=== PATIENT | female | born 1950 | race African-American/Black ===

== ENCOUNTER 2018-11-17 07:42 | Inpatient (IN) | payer OTHER ==
--- NOTE | 2018-11-17 08:16 | PDOC ---
History of Present Illness - General Chief Complaint: Seizure Stated Complaint: SEIZURE Time Seen by Provider: 11/17/18 07:44 - History of Present Illness Initial Comments: 68 year old female with PMH of right sided breast cancer s/p resection with lymphnodectomy on the right presenting with multiple new onset seizures. Family noticed that the patient was shaking and unresponsive for a few seconds approximately 7:30 AM after arriving at the daughter's house via bus. EMS witnessed two more seizures on arrival and were about to administer versed each time but the patient stopped seizing. It is unclear if she returned to her baseline in between these episodes as she was loudly crying in between asking for help. EMS also noted . She did not admit to any recent sick symptoms and has been taking her anti-hypertensives and anxiolytics as prescribed. She denies fevers, chills, nausea, vomiting, diarrhea, or other symptoms. 11/17/18 08:18 Past History - Past Medical History Allergies/Adverse Reactions: Allergies Allergy/AdvReac Type Severity Reaction Status Date / Time No Known Drug Allergies Allergy Verified 11/17/18 07:49 Home Medications: Ambulatory Orders Alprazolam [Xanax] 0.5 mg PO Q6H PRN 04/15/14 Amlodipine Besylate [Norvasc -] 2.5 mg PO DAILY 04/15/14 Aspirin [ASA -] 81 mg PO DAILY 04/15/14 Losartan/Hydrochlorothiazide [Losartan-Hctz 100-25 mg Tab] 1 each PO DAILY 04/15 Anastrozole [Arimidex -] 1 mg PO DAILY 11/17/18 Empagliflozin [Jardiance] 10 mg PO DAILY 11/17/18 Metoprolol Tartrate 25 mg PO DAILY 11/17/18 Rosuvastatin Calcium 20 mg PO DAILY 11/17/18 Anemia: Yes Asthma: No Cancer: Yes (RIGHT BREAST) Cardiac Disorders: Yes (MUMUR, STENT) CVA: No COPD: No CHF: No Dementia: No Diabetes: No GI Disorders: No (BORDERLINE) Disorders: No HTN: Yes Hypercholesterolemia: Yes Liver Disease: No Seizures: No Thyroid Disease: No - Surgical History Abdominal Surgery: No Appendectomy: No Cardiac Surgery: Yes (STENT TIMES ONE) Cholecystectomy: No Lung Surgery: No Neurologic Surgery: No Orthopedic Surgery: No - Suicide/Smoking/Psychosocial Hx Smoking History: Never smoked Have you smoked in the past 12 months: No If you are a former smoker, when did you quit?: 02/16/15 Information on smoking cessation initiated: No Hx Alcohol Use: No Drug/Substance Use Hx: No Substance Use Type: Alcohol Hx Substance Use Treatment: No Review of Systems - Review of Systems Constitutional: No: Chills, Diaphoresis, Fever HEENTM: No: Eye Pain, Blurred Vision, Tearing Respiratory: No: Cough, Orthopnea, Shortness of Breath Cardiac (ROS): No: Chest Pain, Edema, Irregular Heart Rate ABD/GI: No: Diarrhea, Nausea, Vomiting : No: Burning, Dysuria, Discharge Musculoskeletal: No: Muscle Weakness Integumentary: No: Bruising, Erythema, Flushing Neurological: No: Headache, Numbness, Paresthesia Psychiatric: No: Anxiety, Depression Hematologic/Lymphatic: Yes: Lymph Node Abnormalities (right sided lymnodectomy) . No: Anemia, Blood Clots, Easy Bleeding *Physical Exam - Vital Signs Last Vital Signs Temp Pulse Resp BP Pulse Ox 69 18 196/110 H 97 11/17/18 07:44 11/17/18 07:44 11/17/18 07:44 11/17/18 07:44 - Physical Exam General Appearance: Yes: Nourished, Appropriately Dressed. No: Apparent Distress HEENT: positive: EOMI, RACQUEL, Normal ENT Inspection, Normal Voice Neck: positive: Trachea midline, Normal Thyroid, Supple. negative: Tender, Rigid Respiratory/Chest: positive: Lungs Clear, Normal Breath Sounds. negative: Chest Tender, Respiratory Distress, Accessory Muscle Use Cardiovascular: positive: Regular Rhythm, Regular Rate Gastrointestinal/Abdominal: positive: Normal Bowel Sounds, Flat, Soft. negative : Tender Musculoskeletal: positive: Normal Inspection. negative: Decreased Range of Motion Extremity: positive: Normal Capillary Refill, Normal Inspection, Normal Range of Motion. 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 - Medical Decision Making 68 year old female with PMH of breast cancer, HTN, and anxiety presenting with new onset seizure x4 since 7:30 AM in the setting of HTN 200/100s in the field. primary concern was for hemorrhagic stroke vs. hypertensive emergency and subsequent seizure. Blood pressures began to normalize to 140s systolic in our department without intervention. Patient admits htat she took an extra dose of her anti-htn medication at home. Her FS in the field was 190s and there was no obvious sign of infection, She was afebrile here. EKG demonstrated rate 61, RI interval 224, QRS 86, QTc 408, normal axis with ST flattening in V2 without ST wave elevations. Overall concerning fro first degree AV block. 11/17/18 08:[address] negative and labs WNL. Spoke with Dr. Fuentes and he recommended MRI brain with [facility]. Spoke to Dr. Vail as well and will admit to stroke unit. 11/17/18 09:45 *DC/Admit/Observation/Transfer Diagnosis at time of Disposition: Seizure, Hypertensive emergency - Discharge Dispostion Condition at time of disposition: Stable Decision to Admit order: Yes - Referrals - Patient Instructions - Post Discharge Activity
[2018-11-17] MEDS ORDERED: levETIRAcetam 500 MG/5 ML INJECTION VIAL IVPB ONE ×2 (08:30→08:38)
[2018-11-17] MEDS ORDERED: LORazepam 1 MG TABLET PO ONE (08:31)
--- NOTE | 2018-11-17 08:31 | PDOC ---
Attending Attestation - Resident Resident Name: Oliverio Keller - ED Attending Attestation I have performed the following: I have examined & evaluated the patient, The case was reviewed & discussed with the resident, I agree w/resident's findings & plan, Exceptions are as noted - HPI HPI: 11/17/18 08:25 68yo female with hx of htn on 3 bp meds, follows with dr. valiente and hx of breast ca in the past with new onset seizures today. Pt arrives via ambulance with a seizure that lasted about 10 seconds upon arrival. 4th seizure occurred in the ambulance - both resolved spontaneously without meds. Per medics - BP was >200 systolic upon their arrival. Pt with glucose 190 in the field. Pt hypertensive upon arrival. Pt tearful upon arrival. Per daughter, pt arrived on the bus to her house around 7:15 and then had her first seizure around 7:30. Concern pt never returned to baseline. pt denies alcohol use, states she took her bp meds this am and an extra "agitation" med that starts with an F. Daughter sent home to obtain the meds. Pt denies cárdenas. No blurred vision. No cárdenas. No cp/sob. No focal neuro findins. Moving all extremities. Sensation intact. Denies dysuria. No n/v/d. No cp/sob. No cough. - Physicial Exam PE: 11/17/18 08:29 Gen: after seizure and return from CT- aaox3, tearful heent: PERRL, EOMI, MMM Neck: supple heart: +s1s2 reg lungs: cta b/l abd: soft, nt/nd +bs ext: no c/c/e neuro: cn ii-xii grossly intact, 5/5 UE and LE strength, sensation intact, no focal deficits skin: no rashes - Critical Care Time Total Critical Care Time: 45 Critical Care Statement: The care of this patient involved high complexity decision making to prevent further life threatening deterioration of the patient 's condition and/or to evaluate & treat vital organ system(s) failure or risk of failure. - Medical Decision Making 11/17/18 08:31 a/p: 68yo female with new onset seizures today and htn -concern for brain bleed vs cva vs drug induced vs hypertensive emergency -pt took all her BP meds this am -pt also with a hx of breast ca s/p lymph node dissection on the R -pt glu 190 in the field -elevated bp when this started and had 4 seizures this am -currently tearful, anxious, agitated -states she took her "agitation meds" this am and took an extra dose - sent daughter to obtain meds -sent for stat head ct, stroke protocol, labs, ekg, cxr -tele monitoring -on asa per prior notes -will send tox panel -pt will need admission -will discuss with neuro 11/17/18 08:[address] neg labs pending resident discussed the case with Dr. Ma from neuro 11/17/18 08:[address] ma order brain mri with [facility] to eval for poss mass 11/17/18 08:58 cxr clear 11/17/18 09:43 labs reviewed case discussed with Dr. Vail who accepts pt to service Heart Score/ECG Review - ECG Intrepretation Comment:: 11/17/18 08:56 sinus at 61 with 1st degree av block, nl axis, baseline artifact, no acute st/t wave findings, poor r wave progression
[2018-11-17] MEDS ORDERED: LORazepam 0.5 MG TABLET ONE (08:38)
[2018-11-17 08:41] LABS: EOS % 2.5 % (0-4.5); HEMATOCRIT 41.2 % (32.4-45.2); HEMOGLOBIN 13.7 GM/dL (10.7-15.3); LYMPH % 27.8 % (8-40); MCHC 33.2 g/dl (32.0-36.0); MEAN CELL VOLUME 84.2 fl (80-96); MEAN PLT VOLUME 8.2 fl (7.5-11.1); MONO % 10.1 % (3.8-10.2); NEUT % 58.6 % (42.8-82.8); PLATELET COUNT 262 K/MM3 (134-434); RBC 4.89 M/mm3 (3.60-5.2); RDW 14.9 % (11.6-15.6); WHITE BLOOD COUNT 4.6 K/mm3 (4.0-10.0)
[2018-11-17 08:56] LABS: INR 0.96 (0.83-1.09); PROTHROMBIN TIME (PATIENT) 11.3 SEC (9.7-13.0)
[2018-11-17 09:11] LABS: ALBUMIN 4.2 g/dl (3.4-5.0); ALK PHOS 98 U/L (45-117); ANION GAP 7 MMOL/L (8-16); BILIRUBIN,TOTAL 0.3 mg/dL (0.2-1); BLOOD UREA NITROGEN 16.4 mg/dL (7-18); CALCIUM 9.8 mg/dL (8.5-10.1); CHLORIDE 105 mmol/L (98-107); CO2 27 mmol/L (21-32); CREATININE 1.1 mg/dL (0.55-1.3); GLUCOSE,RANDOM 178 mg/dL (74-106); POTASSIUM 3.9 mmol/L (3.5-5.1); SGOT/AST 18 U/L (15-37); SGPT/ALT 38 U/L (13-61); SODIUM 139 mmol/L (136-145); TOT PROT 8.3 g/dl (6.4-8.2)
--- NOTE | 2018-11-17 09:39 | EKG ---
Test Reason : Blood Pressure : / mmHG Vent. Rate : 061 BPM Atrial Rate : 061 BPM P-R Int : 224 ms QRS Dur : 086 ms QT Int : 406 ms P-R-T Axes : 041 039 058 degrees QTc Int : 408 ms SINUS RHYTHM WITH 1ST DEGREE A-V BLOCK POSSIBLE ANTERIOR INFARCT , AGE UNDETERMINED ABNORMAL ECG NO PREVIOUS ECGS AVAILABLE Confirmed by MARILU CHI MD ([id number]) on 11/17/2018 9:38:49 AM Referred By: Confirmed By:MARILU CHI MD
--- NOTE | 2018-11-17 10:46 | CON.NEURO ---
Consult - History of Present Illness History of Present Illness: 68yo female with hx of htn on 3 bp meds, follows with dr. valiente and hx of breast ca in the past with new onset seizures today. Pt arrives via ambulance with a seizure that lasted about 10 seconds upon arrival. 4th seizure occurred in the ambulance - both resolved spontaneously without meds. Per medics - BP was >200 systolic upon their arrival. Pt with glucose 190 in the field. Per daughter, pt arrived on the bus to her house around 7:15 and then had her first seizure around 7:30. Concern pt never returned to baseline. pt denies alcohol use, states she took her bp meds this am and an extra "agitation" med that starts with an F. Daughter sent home to obtain the meds. NO HX of seizures. Pt denies fox. blurred vision. No FOX. Keppra loaded in ER. HD cT (-), no fever , WBC NL - Alcohol/Substance Use Hx Alcohol Use: No - Smoking History Smoking history: Never smoked Have you smoked in the past 12 months: No If you are a former smoker, when did you quit?: 02/16/15 Home Medications - Allergies Allergies/Adverse Reactions: Allergies Allergy/AdvReac Type Severity Reaction Status Date / Time No Known Drug Allergies Allergy Verified 11/17/18 07:49 - Home Medications Home Medications: Ambulatory Orders Alprazolam [Xanax] 0.5 mg PO Q6H PRN 04/15/14 Amlodipine Besylate [Norvasc -] 2.5 mg PO DAILY 04/15/14 Aspirin [ASA -] 81 mg PO DAILY 04/15/14 Losartan/Hydrochlorothiazide [Losartan-Hctz 100-25 mg Tab] 1 each PO DAILY 04/15 Anastrozole [Arimidex -] 1 mg PO DAILY 11/17/18 Empagliflozin [Jardiance] 10 mg PO DAILY 11/17/18 Metoprolol Tartrate 25 mg PO DAILY 11/17/18 Rosuvastatin Calcium 20 mg PO DAILY 11/17/18 Physical Exam-Neuro Vital Signs: Vital Signs Temperature 99.2 F 11/17/18 07:44 Pulse Rate 57 L 11/17/18 09:29 Respiratory Rate 18 11/17/18 09:29 Blood Pressure 173/97 H 11/17/18 09:29 O2 Sat by Pulse Oximetry (%) 100 11/17/18 09:29 Labs: CBC, BMP 11/17/18 08:05 11/17/18 08:05 INR, PTT INR 0.96 (0.83-1.09) 11/17/18 08:05 - Neuro Exam Level Of Consciousness: Yes: Alert, Oriented to Person (EOMi, no facial, motor 5 /5, reflexes symmetric) Imaging - Results Cat Scan: Report Reviewed, Image Reviewed Problem List - Problems (1) Hypertensive emergency Code(s): I16.1 - HYPERTENSIVE EMERGENCY (2) Seizure Code(s): R56.9 - UNSPECIFIED CONVULSIONS Assessment/Plan 68yo female with hx of htn on 3 bp meds, follows with dr. valiente and hx of breast ca in the past with new onset seizures today. Pt arrives via ambulance with a seizure that lasted about 10 seconds upon arrival. 4th seizure occurred in the ambulance - both resolved spontaneously without meds. Per medics - BP was >200 systolic upon their arrival. Pt with glucose 190 in the field. Per daughter, pt arrived on the bus to her house around 7:15 and then had her first seizure around 7:30. Concern pt never returned to baseline. pt denies alcohol use, states she took her bp meds this am and an extra "agitation" med that starts with an F. Daughter sent home to obtain the meds. Pt denies fox. blurred vision. No fox. HD cT (-), no fever , WBC NL AP : Hypertensive urgency, with seizure, possible PRES, back to baseline no evidence of meningitis , stroke etc await MRI BRAIN continue KEppra 500BID for now, and will consider taper in 2 weeks assuming she has no new neurological issues Dr. Fuentes
[2018-11-17 14:55] LABS: COCAINE, UR NEGATIVE ng/ml (CUTOFF=300); METHADONE, UR NEGATIVE ng/ml (CUTOFF=300); OPIATES, URI NEGATIVE ng/ml (CUTOFF=300); PHENCYCLIDINE,URINE NEGATIVE ng/ml (CUTOFF=25); URINE AMPHETAMINES NEGATIVE ng/ml (CUTOFF=500); URINE BARBITURATES NEGATIVE ng/ml (CUTOFF=200); URINE BENZODIAZEPINES NEGATIVE ng/ml (CUTOFF=200)
[2018-11-17 15:52] LABS: URINE APPEARANCE CLEAR; URINE BILIRUBIN NEGATIVE (NEGATIVE); URINE COLOR YELLOW; URINE GLUCOSE (UA) 3+ (NEGATIVE); URINE KETONE NEGATIVE (NEGATIVE); URINE LEUK ESTERASE NEGATIVE (NEGATIVE); URINE NITRITE NEGATIVE (NEGATIVE); URINE PROTEIN NEGATIVE (NEGATIVE); URINE UROBILINOGEN 0.2 mg/dL (0.2-1.0)
--- NOTE | 2018-11-17 19:51 | HP ---
Admitting History and Physical - Admission History of Present Illness: Pt is a 68 year old female with PMH significant for breast cancer(s/p rt mastectomy/lymph node resection), HTN, HLD, CAD(s/p stent placement), diabetes and anxiety/depression. Pt presednted to ER w/ multiple new onset seizures. Family noticed that the patient was shaking and unresponsive for a few seconds approximately 7:30 AM after arriving at the daughter's house via bus. EMS witnessed two more seizures on arrival and were about to administer versed each time but the patient stopped seizing. It is unclear if she returned to her baseline in between these episodes as she was loudly crying in between asking for help. EMS also noted . EMS found pt's BP to be systolic BP of > 200 and blood glucose of 190. In the ER pt again had another seizure. Pt had ct scan head wc was normal. Pt states that she took all her meds this am. - Past Medical History Cardiovascular: Yes: CAD, HTN, Hyperlipdemia Psych: Yes: Anxiety, Depression - Smoking History Smoking history: Former smoker Have you smoked in the past 12 months: No If you are a former smoker, when did you quit?: 02/16/14 - Alcohol/Substance Use Hx Alcohol Use: No Home Medications - Allergies Allergies/Adverse Reactions: Allergies Allergy/AdvReac Type Severity Reaction Status Date / Time No Known Drug Allergies Allergy Verified 11/17/18 07:49 - Home Medications Home Medications: Ambulatory Orders Alprazolam [Xanax] 0.5 mg PO Q6H PRN 04/15/14 Amlodipine Besylate [Norvasc -] 2.5 mg PO DAILY 04/15/14 Aspirin [ASA -] 81 mg PO DAILY 04/15/14 Losartan/Hydrochlorothiazide [Losartan-Hctz 100-25 mg Tab] 1 each PO DAILY 04/15 Anastrozole [Arimidex -] 1 mg PO DAILY 11/17/18 Empagliflozin [Jardiance] 10 mg PO DAILY 11/17/18 Fluoxetine HCl 20 mg PO DAILY 11/17/18 Metoprolol Tartrate 25 mg PO DAILY 11/17/18 Rosuvastatin Calcium 20 mg PO DAILY 11/17/18 Family Disease History - Family Disease History Family History: Unremarkable Review of Systems - Review of Systems Constitutional: reports: No Symptoms Eyes: reports: No Symptoms HENT: reports: No Symptoms Neck: reports: No Symptoms Cardiovascular: reports: No Symptoms Respiratory: reports: No Symptoms Gastrointestinal: reports: No Symptoms Genitourinary: reports: No Symptoms Physical Examination Vital Signs: Vital Signs Temperature 97.8 F 11/17/18 17:20 Pulse Rate 73 11/17/18 17:20 Respiratory Rate 20 11/17/18 17:20 Blood Pressure 142/80 11/17/18 17:20 O2 Sat by Pulse Oximetry (%) 99 11/17/18 13:08 Constitutional: Yes: Well Nourished Eyes: Yes: WNL HENT: Yes: WNL Neck: Yes: WNL, Supple Cardiovascular: Yes: WNL, Regular Rate and Rhythm Respiratory: Yes: WNL, Regular, CTA Bilaterally Gastrointestinal: Yes: WNL, Normal Bowel Sounds, Soft Musculoskeletal: Yes: WNL Extremities: Yes: WNL Edema: No Neurological: Yes: WNL, Alert, Oriented ...Motor Strength: WNL Labs: CBC, BMP 11/17/18 08:05 11/17/18 08:05 Problem List - Problems (1) Seizure Assessment/Plan: CT scan head was normal Neuro consult noted Cont keppra MRI brain to r/o mets from breast cancer Code(s): R56.9 - UNSPECIFIED CONVULSIONS (2) HTN (hypertension) Assessment/Plan: BP is now stable Cont Hctz/asa/norvasc/cozaar/metoprolol Check echo Code(s): I10 - ESSENTIAL (PRIMARY) HYPERTENSION (3) HLD (hyperlipidemia) Assessment/Plan: Cont crestor Code(s): E78.5 - HYPERLIPIDEMIA, UNSPECIFIED (4) Diabetes Assessment/Plan: Cont sliding scale w/ coverage Check HgA1c Jardiance is nonformulary Will cont to monitor Code(s): E11.9 - TYPE 2 DIABETES MELLITUS WITHOUT COMPLICATIONS (5) Anxiety and depression Assessment/Plan: Cont paxil Code(s): F41.9 - ANXIETY DISORDER, UNSPECIFIED; F32.9 - MAJOR DEPRESSIVE DISORDER, SINGLE EPISODE, UNSPECIFIED (6) Breast cancer Assessment/Plan: Cont arimidex Code(s): C50.919 - MALIGNANT NEOPLASM OF UNSP SITE OF UNSPECIFIED FEMALE BREAST
[2018-11-17] MEDS: INSULIN SLIDING SCALE (NOVOLOG) 1 VIAL SQ SCH (21:57)
[2018-11-17] MEDS ORDERED: ROSUVASTATIN CA 20 MG TABLET (FP) PO SCH (22:00)
[2018-11-17] MEDS ORDERED: levETIRAcetam 500 MG/5 ML INJECTION VIAL IVPB SCH (22:00)
[2018-11-18] MEDS ORDERED: LORazepam 2 MG/ML SDV VIAL ONE ×3 (05:13→16:59)
[2018-11-18] MEDS ORDERED: LORazepam 2 MG/ML SDV VIAL IVPUSH ONE ×4 (05:15→21:14)
--- NOTE | 2018-11-18 05:20 | RAPID ---
Physical Examination Vital Signs: Vital Signs Temperature 97.5 F L 11/18/18 02:07 Pulse Rate 63 11/18/18 02:07 Respiratory Rate 20 11/18/18 02:07 Blood Pressure 123/79 11/18/18 02:07 O2 Sat by Pulse Oximetry (%) 99 11/17/18 21:00 Findings/Remarks: Rapid response was called at 0510. Team arrived and found the patient lying in bed, distressed. As per nurse patient came from the bathroom and started to have generalized seizures that lasted about 10 seconds, resolved spontaneously. 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 Fuentes, increased Keppra dose to 1gm BID, given dose now - Brain MRI stat - LP after MRI Labs: CBC, BMP 11/17/18 08:05 11/17/18 08:05
[2018-11-18] MEDS ORDERED: levETIRAcetam 500 MG/5 ML INJECTION VIAL IVPB SCH ×2 (05:40→05:50)
[2018-11-18] MEDS: levETIRAcetam 500 MG/5 ML INJECTION VIAL IVPB SCH ×3 (05:45→21:16)
[2018-11-18] MEDS ORDERED: levETIRAcetam 500 MG/5 ML INJECTION VIAL IVPB ONE (05:45)
--- NOTE | 2018-11-18 06:09 | CONSULT ---
Consultation: REQUESTING PROVIDER: Dr. Salmeron CONSULT REQUEST: We have been asked to medically evaluate this patient for recurrent seizures. HISTORY OF PRESENT ILLNESS: 68 y/o old female with PMH significant for breast cancer(s/p rt mastectomy/ lymph node resection), HTN, HLD, CAD(s/p stent placement), diabetes, anxiety, depression, who initially presented for new onset seizures which began at home yesterday. Per chart, pt had two new-onset seizures at home yesterday. Pt seized twice to the ED en route, both resolving spontaneously without medication. Upon arrival to ED, pt with BP systolic >200 upon arrival, with BG 190 in the field. Pt was initially admitted for management and was seen by neuro , loaded on Keppra 1000mg IVPB x 1 and started on Keppra 500mg IVPB BID. Pt initially with concern for PRES. Rapid response was called on the floor, as pt continuing to seize despite keppra initiation. Per team, pt had two witnessed seizures, each lasting approx 10 seconds. First sz self-terminated on own. After , pt was moaning, however was responsive to verbal stimuli. Was unable to move her toes. Before 2nd seizure, pt was noted to have R lateral gaze deviation. 2nd seizure terminated with ativan 2mg IVP x1. Upon my examination, pt was lethargic post ativan. Vitals at RR stable - BP 137/70, HR 58bpm. Pt transferred to ICU post rapid response for recurrent seizure stabilization. Head CT 11/17/2018: no CT evidence of mass, hemorrhage, or acute vascular territory infarction. No hyperdense vessel. No acute intracranial hemorrhage, no acute infarction, no acute changes in the brain identified. REVIEW OF SYSTEMS: +lethargy +seizure PHYSICAL EXAMINATION Vital Signs 11/17/18 11/17/18 11/18/18 17:20 21:00 02:07 Temperature 97.8 F 98.1 F 97.5 F L Pulse Rate 73 60 63 Pulse Rate [ Left Radial] Respiratory 20 18 20 Rate Blood Pressure 142/80 119/51 L 123/79 Blood Pressure [Left Arm] O2 Sat by Pulse 99 Oximetry (%) GENERAL: lethargic HEAD: Normal with no signs of trauma. EYES: +sluggish pupils EARS, NOSE, THROAT: Ears normal, nares patent, oropharynx clear without exudates. Moist mucous membranes. NECK: Normal range of motion, supple LUNGS: Breath sounds equal, clear to auscultation bilaterally. No wheezes, and no crackles. No accessory muscle use. HEART: Regular rate and rhythm, normal S1 and S2 without murmur, rub or gallop. ABDOMEN: Soft, obese, nontender, not distended, normoactive bowel sounds LOWER EXTREMITIES: 2+ pt pulses, warm, well-perfused. No calf tenderness. No peripheral edema. NEUROLOGICAL: pt lethargic after ativan. previously was able to follow commands , however was unable to move LE. Laboratory Results 11/17/18 11/17/18 11/17/18 08:05 08:05 08:05 WBC 4.6 Hgb 13.7 Hct 41.2 Plt Count 262 Sodium 139 Potassium 3.9 Chloride 105 Carbon Dioxide 27 BUN 16.4 Creatinine 1.1 Random Glucose 178 H Total Protein 8.3 H Ur Specific [place] Urine Glucose (UA) Salicylates < 1.7 L 11/17/18 14:20 Total Protein Ur Specific [place] 1.039 H Urine Glucose (UA) 3+ H Salicylates ASSESSMENT/PLAN: 68 y/o old female with PMH significant for breast cancer(s/p rt mastectomy/ lymph node resection), HTN, HLD, CAD(s/p stent placement), diabetes, anxiety, depression, who initially presented for new onset seizures which began at home yesterday. Pt transferred to ICU post rapid response for recurrent seizure stabilization. NEURO #New onset seizures initial concern HTN urgency, possible PRES -BP currently controlled : ~130/90. no longer with urgency -initial head CT: WNL -s/p keppra 1000mg IVPB x 1. -d/w Dr. Fuentes as with continued sz activity, will change keppra from 500mg to 1000mg IVPB BID -if sz with new keppra dose, will need to load dilantin -may need LP -requested head CT w/w/o contrast. renal fnc WNL. will need consent from family -f/u brain MRI r/o mets from breast CA -f/u ECHO -sz precautions HEME/ONC #Hx breast ca (s/p R mastectomy/ LN resection) -c/w arimidex CARDIO #HTN -c/w hctz, asa, norvasc, cozaar, metoprolol when less lethargic -BP currently stable. can start IV control if needed as unable to tolerate PO #HLD -c/w crestor ENDOCRINE -c/w ISS, BGM ACHS -f/u a1c PSYCH #Anxiety, depression -c/w paxil #F/E/N currently not on IVF continue to follow lytes NPO; lethargic #PPX DVT: hep 5k TID Dispo: We will continue to follow the patient. Thank you for this consultative opportunity. Visit type - Emergency Visit Emergency Visit: No - New Patient This patient is new to me today: Yes Date on this admission: 11/18/18 - Critical Care Critical Care patient: Yes Total Critical Care Time (in minutes): 46 Critical Care Statement: The care of this patient involved high complexity decision making to prevent further life threatening deterioration of the patient 's condition and/or to evaluate & treat vital organ system(s) failure or risk of failure.
[2018-11-18] MEDS: INSULIN SLIDING SCALE (NOVOLOG) 1 VIAL SQ SCH ×4 (06:11→22:32)
[2018-11-18 06:20] LABS: BASO % 0.9 % (0-2.0); EOS % 3.1 % (0-4.5); HEMATOCRIT 36.8 % (32.4-45.2); HEMOGLOBIN 12.1 GM/dL (10.7-15.3); LYMPH % 42.9 % (8-40); MCH 27.9 pg (25.7-33.7); MCHC 32.9 g/dl (32.0-36.0); MEAN CELL VOLUME 84.8 fl (80-96); MONO % 11.4 % (3.8-10.2); NEUT % 41.7 % (42.8-82.8); PLATELET COUNT 223 K/MM3 (134-434); RBC 4.34 M/mm3 (3.60-5.2); RDW 15.2 % (11.6-15.6); WHITE BLOOD COUNT 4.2 K/mm3 (4.0-10.0)
[2018-11-18 06:34] LABS: ALBUMIN 3.4 g/dl (3.4-5.0); BILIRUBIN,TOTAL 0.3 mg/dL (0.2-1); BLOOD UREA NITROGEN 21.6 mg/dL (7-18); CALCIUM 8.7 mg/dL (8.5-10.1); CREATININE 0.9 mg/dL (0.55-1.3); MAGNESIUM 2.3 mg/dL (1.8-2.4); POTASSIUM 3.5 mmol/L (3.5-5.1)
[2018-11-18] MEDS ORDERED: HEPARIN NA (PORCINE) 5,000 UNITS/ML 1ML VIAL SQ SCH (10:00)
[2018-11-18] MEDS ORDERED: amLODIPine BESYLATE 2.5 MG TABLET (FP) PO SCH (10:00)
[2018-11-18] MEDS ORDERED: METOPROLOL TARTRATE 25 MG TABLET (FP) PO SCH (10:00)
[2018-11-18] MEDS ORDERED: PATIENT'S OWN MEDICATION (NON-FORMULARY) (Losartan/Hydrochlorothiazide [Losartan-Hctz 100- PO SCH (10:00)
[2018-11-18] MEDS ORDERED: ASPIRIN 81 MG CHEWABLE TABLETS PO SCH (10:00)
[2018-11-18] MEDS ORDERED: HYDROCHLOROTHIAZIDE 25 MG TABLET (FP) PO SCH (10:00)
[2018-11-18] MEDS ORDERED: FLUOXETINE HCL 20 MG PO SCH (10:00)
[2018-11-18] MEDS ORDERED: LOSARTAN POTASSIUM 50 MG TABLET (FP) PO SCH (10:00)
[2018-11-18] MEDS ORDERED: ANASTROZOLE 1 MG TABLET PO SCH (10:00)
[2018-11-18] MEDS ORDERED: FLUoxetine HCL 20 MG CAPSULE (FP) PO SCH ×2 (10:00)
--- NOTE | 2018-11-18 10:34 | PN ---
Teaching Attending Note Name of Resident: Connie Garsia ATTENDING PHYSICIAN STATEMENT I saw and evaluated the patient. I reviewed the resident's note and discussed the case with the resident. I agree with the resident's findings and plan as documented. SUBJECTIVE: Pt seen and examined in the ICU. Another seizure episode during rounds, given ativan. MRI read pending. OBJECTIVE: Vital Signs Period Temp Pulse Resp BP Sys/Salazar Pulse Ox Last 24 Hr 97.5 F-98.1 F 57-73 15-20 108-187/51-96 99-100 Intake & Output 11/15/18 11/16/18 11/17/18 11/18/18 23:59 23:59 23:59 23:59 Intake Total 370 Output Total 300 200 Balance 70 -200 Weight 88.451 kg 88.859 kg Gen: post ictal Heart: RRR Lung: decreased breath sounds at the bases Abd: soft, nontender Ext: no edema CBC, BMP 11/18/18 05:40 11/18/18 05:40 Active Medications Amlodipine Besylate (Norvasc -) 2.5 mg PO DAILY [facility] Anastrozole (Arimidex -) 1 mg PO DAILY [facility] Aspirin (Asa -) 81 mg PO DAILY [facility] Chlorhexidine Gluconate (Hibiclens For Decolonization -) 1 applic TP HS [facility] Fluoxetine HCl (Prozac -) 20 mg PO DAILY [facility] Heparin Sodium (Porcine) (Heparin -) 5,000 unit SQ BID [facility] Hydrochlorothiazide (Hctz -) 25 mg PO DAILY [facility] Insulin Aspart (Novolog Vial Sliding Scale -) 1 vial SQ ACHS [facility]; Protocol Levetiracetam (Keppra Injection -) 1,000 mg IVPB BID [facility] Last Admin: 11/18/18 05:45 Dose: 1,000 mg Losartan Potassium (Cozaar -) 100 mg PO DAILY [facility] Metoprolol Tartrate (Lopressor -) 25 mg PO DAILY [facility] Mupirocin (Bactroban Ointment (For Decolonization) -) 1 applic NS BID [facility] Stop: 11/23/18 09:59 Rosuvastatin Calcium (Crestor -) 20 mg PO HS [facility] ASSESSMENT AND PLAN: New Onset Seizures Breast Ca s/p R Mastectomy/LN dissection CAD HTN DM Hyperlipidemia Anxiety/Depression - antiepileptics - benzos as needed - seizure precautions - f/u MRI read - aspiration precautions - DVT prophylaxis - continue ICU monitoring
[2018-11-18] MEDS: HEPARIN NA (PORCINE) 5,000 UNITS/ML 1ML VIAL SQ SCH ×2 (10:50→21:16)
[2018-11-18] MEDS: MUPIROCIN 2% TOPICAL OINTMENT FOR DECOLONIZATION NS SCH ×2 (10:51→21:20)
[2018-11-18] MEDS: HYDROCHLOROTHIAZIDE 25 MG TABLET (FP) PO SCH (12:02)
[2018-11-18] MEDS: ASPIRIN 81 MG CHEWABLE TABLETS PO SCH (12:02)
[2018-11-18] MEDS: METOPROLOL TARTRATE 25 MG TABLET (FP) PO SCH (12:02)
[2018-11-18] MEDS: amLODIPine BESYLATE 2.5 MG TABLET (FP) PO SCH (12:02)
[2018-11-18] MEDS: ANASTROZOLE 1 MG TABLET PO SCH (12:02)
[2018-11-18] MEDS: LOSARTAN POTASSIUM 50 MG TABLET (FP) PO SCH (12:02)
--- NOTE | 2018-11-18 12:16 | PN ---
Physical Exam: SUBJECTIVE: Patient seen and examined at bedside. pt is lethargic. pt's family at bedside. OBJECTIVE: Vital Signs Period Temp Pulse Resp BP Sys/Salazar Pulse Ox Last 24 Hr 97.5 F-98.1 F 57-73 14-20 108-187/51-96 99-100 GENERAL: The patient is lethargic. pt is alert and oriented to person. HEAD: Normal with no signs of trauma. EYES: PERRL. NECK: Trachea midline, full range of motion, supple. LUNGS: Breath sounds equal, clear to auscultation bilaterally, no wheezes, no crackles, no accessory muscle use. HEART: Regular rate and rhythm, S1, S2 without murmur, rub or gallop. ABDOMEN: Soft, nontender, nondistended, normoactive bowel sounds, no guarding EXTREMITIES: 2+ pulses, warm, well-perfused, no edema. SKIN: Warm, dry, normal turgor, no rashes or lesions noted Laboratory Last Values WBC 4.2 K/mm3 (4.0-10.0) 11/18/18 05:40 RBC 4.34 M/mm3 (3.60-5.2) 11/18/18 05:40 Hgb 12.1 GM/dL (10.7-15.3) 11/18/18 05:40 Hct 36.8 % (32.4-45.2) 11/18/18 05:40 MCV 84.8 fl (80-96) 11/18/18 05:40 MCH 27.9 pg (25.7-33.7) 11/18/18 05:40 MCHC 32.9 g/dl (32.0-36.0) 11/18/18 05:40 RDW 15.2 % (11.6-15.6) 11/18/18 05:40 Plt Count 223 K/MM3 (134-434) 11/18/18 05:40 MPV 8.0 fl (7.5-11.1) 11/18/18 05:40 Absolute Neuts (auto) 1.8 K/mm3 (1.5-8.0) 11/18/18 05:40 Neutrophils % 41.7 % (42.8-82.8) L D 11/18/18 05:40 Lymphocytes % 42.9 % (8-40) H D 11/18/18 05:40 Monocytes % 11.4 % (3.8-10.2) H 11/18/18 05:40 Eosinophils % 3.1 % (0-4.5) 11/18/18 05:40 Basophils % 0.9 % (0-2.0) 11/18/18 05:40 Nucleated RBC % 0 % (0-0) 11/18/18 05:40 PT with INR 11.30 SEC (9.7-13.0) 11/17/18 08:05 INR 0.96 (0.83-1.09) 11/17/18 08:05 PTT (Actin FS) 36.0 SECONDS (25.2-36.5) 11/17/18 08:05 Sodium 140 mmol/L (136-145) 11/18/18 05:40 Potassium 3.5 mmol/L (3.5-5.1) 11/18/18 05:40 Chloride 107 mmol/L (98-107) 11/18/18 05:40 Carbon Dioxide 26 mmol/L (21-32) 11/18/18 05:40 Anion Gap 8 MMOL/L (8-16) 11/18/18 05:40 BUN 21.6 mg/dL (7-18) H 11/18/18 05:40 Creatinine 0.9 mg/dL (0.55-1.3) 11/18/18 05:40 Est GFR (CKD-EPI)AfAm 75.08 11/18/18 05:40 Est GFR (CKD-EPI)NonAf 64.78 11/18/18 05:40 POC Glucometer 142 UNITS (80-120) 11/18/18 05:45 Random Glucose 150 mg/dL (74-106) H 11/18/18 05:40 Hemoglobin A1c % 7.3 % (4.2-6.3) H 11/18/18 05:40 Calcium 8.7 mg/dL (8.5-10.1) 11/18/18 05:40 Magnesium 2.3 mg/dL (1.8-2.4) 11/18/18 05:40 Total Bilirubin 0.3 mg/dL (0.2-1) 11/18/18 05:40 AST 10 U/L (15-37) L 11/18/18 05:40 ALT 27 U/L (13-61) 11/18/18 05:40 Alkaline Phosphatase 78 U/L (45-117) 11/18/18 05:40 Creatine Kinase 83 U/L (26-192) 11/17/18 08:05 Troponin I < 0.02 ng/ml (0.00-0.05) 11/17/18 08:05 Total Protein 7.0 g/dl (6.4-8.2) 11/18/18 05:40 Albumin 3.4 g/dl (3.4-5.0) 11/18/18 05:40 TSH 1.47 uIU/ml (0.358-3.74) 11/17/18 08:05 Urine Color Yellow 11/17/18 14:20 Urine Appearance Clear 11/17/18 14:20 Urine pH 5.0 (5.0-8.0) 11/17/18 14:20 Ur Specific Lawrence 1.039 (1.010-1.035) H 11/17/18 14:20 Urine Protein Negative (NEGATIVE) 11/17/18 14:20 Urine Glucose (UA) 3+ (NEGATIVE) H 11/17/18 14:20 Urine Ketones Negative (NEGATIVE) 11/17/18 14:20 Urine Blood Negative (NEGATIVE) 11/17/18 14:20 Urine Nitrite Negative (NEGATIVE) 11/17/18 14:20 Urine Bilirubin Negative (NEGATIVE) 11/17/18 14:20 Urine Urobilinogen 0.2 mg/dL (0.2-1.0) 11/17/18 14:20 Ur Leukocyte Esterase Negative (NEGATIVE) 11/17/18 14:20 Salicylates < 1.7 mg/dL (2.8-20) L 11/17/18 08:05 Opiates Screen Negative ng/ml (PTQYCN=552) 11/17/18 14:20 Methadone Screen Negative ng/ml (WWEIGR=359) 11/17/18 14:20 Acetaminophen --noresult-- 11/17/18 10:24 Barbiturate Screen Negative ng/ml (LMTMHP=523) 11/17/18 14:20 Phencyclidine Screen Negative ng/ml (CUTOFF=25) 11/17/18 14:20 Ur Amphetamines Screen Negative ng/ml (QLXJJK=212) 11/17/18 14:20 MDMA (Ecstasy) Screen Negative ng/ml (FAOATL=933) 11/17/18 14:20 Benzodiazepines Screen Negative ng/ml (UNOLZG=718) 11/17/18 14:20 Cocaine Screen Negative ng/ml (OQCCCX=860) 11/17/18 14:20 U Marijuana (THC) Screen Negative ng/ml (CUTOFF=50) 11/17/18 14:20 Alcohol, Quantitative < 3.0 mg/dL (0.0-5.0) 11/17/18 10:24 Blood Type O POSITIVE 11/17/18 10:24 Antibody Screen Negative 11/17/18 08:05 Current Medications Amlodipine Besylate (Norvasc -) 2.5 mg PO DAILY [facility] Last Admin: 11/18/18 12:02 Dose: Not Given Anastrozole (Arimidex -) 1 mg PO DAILY [facility] Last Admin: 11/18/18 12:02 Dose: Not Given Aspirin (Asa -) 81 mg PO DAILY [facility] Last Admin: 11/18/18 12:02 Dose: Not Given Chlorhexidine Gluconate (Hibiclens For Decolonization -) 1 applic TP HS [facility] Fluoxetine HCl (Prozac -) 20 mg PO DAILY [facility] Last Admin: 11/18/18 12:03 Dose: Not Given Heparin Sodium (Porcine) (Heparin -) 5,000 unit SQ BID [facility] Last Admin: 11/18/18 10:50 Dose: 5,000 unit Hydrochlorothiazide (Hctz -) 25 mg PO DAILY [facility] Last Admin: 11/18/18 12:02 Dose: Not Given Insulin Aspart (Novolog Vial Sliding Scale -) 1 vial SQ [facility]; Protocol Levetiracetam (Keppra Injection -) 1,000 mg IVPB BID [facility] Last Admin: 11/18/18 10:49 Dose: 1,000 mg Losartan Potassium (Cozaar -) 100 mg PO DAILY [facility] Last Admin: 11/18/18 12:02 Dose: Not Given Metoprolol Tartrate (Lopressor -) 25 mg PO DAILY [facility] Last Admin: 11/18/18 12:02 Dose: Not Given Mupirocin (Bactroban Ointment (For Decolonization) -) 1 applic NS BID [facility] Stop: 11/23/18 09:59 Last Admin: 11/18/18 10:51 Dose: 1 applic Rosuvastatin Calcium (Crestor -) 20 mg PO HS [facility] Brain MRI: Impression: Ischemic changes in the white matter of both hemispheres sequela most probably to long-standing hypertension or small vessel arteriosclerosis.. No evidence acute infarction. No evidence of intracerebral hemorrhage, subdural fluid collection or hydrocephalus. No suspicious enhancing intra or extra axial neoplasm. No suspicious meningeal enhancement. ASSESSMENT/PLAN: 68 yo F PMH significant for breast cancer(s/p rt mastectomy/lymph node resection. s/p radiation and arimidex), HTN, HLD, CAD(s/p stent placement), diabetes, anxiety, depression, who initially presented for new onset seizures which began at home yesterday. On admission pt had systolic BP> 190. Pt transferred to ICU post rapid response for recurrent seizure stabilization. NEURO New onset seizures HTN urgency vs possible PRES -BP currently controlled : ~130/90 - head CT: no acute hemorrhage. no acute interval change -c/w keppra 1000mg IVPB BID. will check level -fosphenytoin 100 TID -Neuro recs appreciated( Dr. Fuentes) as with continued seizure activity -may need LP - brain MRI reviewed, see above results. no suspicious enhancing intra or extra axial neoplasm -seizure precautions HEME/ONC breast ca (s/p R mastectomy/ LN resection, radiation) -c/w arimidex CARDIO HTN, HLD -holding hctz, asa, norvasc, cozaar, metoprolol, crestor as pt is npo 2/2 lethargy. pt BP currently well controlled. -BP currently stable. can start IV control if needed as unable to tolerate PO ENDOCRINE -c/w ISS, BGM ACHS -A1C 7.3 PSYCH Anxiety, depression -hold paxil in the setting of seizure activity F/E/N -continue to follow lytes -NPO; lethargy DVT PPX: hep sq Dispo: We will continue to follow the patient. Thank you for this consultative opportunity. Visit type - Emergency Visit Emergency Visit: No - New Patient This patient is new to me today: Yes Date on this admission: 11/18/18 - Critical Care Critical Care patient: Yes Total Critical Care Time (in minutes): 36 Critical Care Statement: The care of this patient involved high complexity decision making to prevent further life threatening deterioration of the patient 's condition and/or to evaluate & treat vital organ system(s) failure or risk of failure. - Discharge Referral Referred to [facility] No ATTENDING PHYSICIAN STATEMENT I saw and evaluated the patient. I reviewed the resident's note and discussed the case with the resident. I agree with the resident's findings and plan as documented. SUBJECTIVE: OBJECTIVE: ASSESSMENT AND PLAN:
--- NOTE | 2018-11-18 12:36 | PN ---
Progress Note (short form) - Note Progress Note: 68yo female with hx of htn on 3 bp meds, follows with dr. valiente and hx of breast ca in the past with new onset seizures today. Pt arrives via ambulance with a seizure that lasted about 10 seconds upon arrival. 4th seizure occurred in the ambulance - both resolved spontaneously without meds. Per medics - BP was >200 systolic upon their arrival. Pt with glucose 190 in the field. Per daughter, pt arrived on the bus to her house around 7:15 and then had her first seizure around 7:30. Concern pt never returned to baseline. pt denies alcohol use, states she took her bp meds this am and an extra "agitation" med that starts with an F. Daughter sent home to obtain the meds. NO HX of seizures. Pt denies fox. blurred vision. No FOX. Keppra loaded in ER. HD cT (-), no fever , WBC NL FU : events last night noted, multiple Sz events keppra inc 1000BID CT HD contrast to my eye (-) MRI BRAIN prelim no evidence stroke, mass, infection; to follow up with radiology to ensure no sinus thrombosis - Alcohol/Substance Use Hx Alcohol Use: No - Smoking History Smoking history: Never smoked Have you smoked in the past 12 months: No If you are a former smoker, when did you quit?: 02/16/15 Home Medications - Allergies Allergies/Adverse Reactions: Allergies Allergy/AdvReac Type Severity Reaction Status Date / Time No Known Drug Allergies Allergy Verified 11/17/18 07:49 - Home Medications Home Medications: Ambulatory Orders Alprazolam [Xanax] 0.5 mg PO Q6H PRN 04/15/14 Amlodipine Besylate [Norvasc -] 2.5 mg PO DAILY 04/15/14 Aspirin [ASA -] 81 mg PO DAILY 04/15/14 Losartan/Hydrochlorothiazide [Losartan-Hctz 100-25 mg Tab] 1 each PO DAILY 04/15 Anastrozole [Arimidex -] 1 mg PO DAILY 11/17/18 Empagliflozin [Jardiance] 10 mg PO DAILY 11/17/18 Metoprolol Tartrate 25 mg PO DAILY 11/17/18 Rosuvastatin Calcium 20 mg PO DAILY 11/17/18 Physical Exam-Neuro Vital Signs: Vital Signs Temperature 98.0 F 11/18/18 10:00 Pulse Rate 64 11/18/18 11:47 Respiratory Rate 18 11/18/18 11:47 Blood Pressure 124/78 11/18/18 11:47 O2 Sat by Pulse Oximetry (%) 100 11/18/18 08:12 Labs: CBCD WBC 4.2 K/mm3 (4.0-10.0) 11/18/18 05:40 RBC 4.34 M/mm3 (3.60-5.2) 11/18/18 05:40 Hgb 12.1 GM/dL (10.7-15.3) 11/18/18 05:40 Hct 36.8 % (32.4-45.2) 11/18/18 05:40 MCV 84.8 fl (80-96) 11/18/18 05:40 MCHC 32.9 g/dl (32.0-36.0) 11/18/18 05:40 RDW 15.2 % (11.6-15.6) 11/18/18 05:40 Plt Count 223 K/MM3 (134-434) 11/18/18 05:40 MPV 8.0 fl (7.5-11.1) 11/18/18 05:40 CMP Sodium 140 mmol/L (136-145) 11/18/18 05:40 Potassium 3.5 mmol/L (3.5-5.1) 11/18/18 05:40 Chloride 107 mmol/L (98-107) 11/18/18 05:40 Carbon Dioxide 26 mmol/L (21-32) 11/18/18 05:40 Anion Gap 8 MMOL/L (8-16) 11/18/18 05:40 BUN 21.6 mg/dL (7-18) H 11/18/18 05:40 Creatinine 0.9 mg/dL (0.55-1.3) 11/18/18 05:40 Calcium 8.7 mg/dL (8.5-10.1) 11/18/18 05:40 Total Bilirubin 0.3 mg/dL (0.2-1) 11/18/18 05:40 AST 10 U/L (15-37) L 11/18/18 05:40 ALT 27 U/L (13-61) 11/18/18 05:40 Alkaline Phosphatase 78 U/L (45-117) 11/18/18 05:40 Total Protein 7.0 g/dl (6.4-8.2) 11/18/18 05:40 Albumin 3.4 g/dl (3.4-5.0) 11/18/18 05:40 - Neuro Exam Level Of Consciousness: Yes: Alert, Oriented to Person (EOMi, no facial, motor 5 /5, reflexes symmetric) Imaging - Results Cat Scan: Report Reviewed, Image Reviewed Problem List - Problems (1) Hypertensive emergency Code(s): I16.1 - HYPERTENSIVE EMERGENCY (2) Seizure Code(s): R56.9 - UNSPECIFIED CONVULSIONS Assessment/Plan 68yo female with hx of htn on 3 bp meds, follows with dr. valiente and hx of breast ca in the past with new onset seizures today. Pt arrives via ambulance with a seizure that lasted about 10 seconds upon arrival. 4th seizure occurred in the ambulance - both resolved spontaneously without meds. Per medics - BP was >200 systolic upon their arrival. Pt with glucose 190 in the field. Per daughter, pt arrived on the bus to her house around 7:15 and then had her first seizure around 7:30. Concern pt never returned to baseline. pt denies alcohol use, states she took her bp meds this am and an extra "agitation" med that starts with an F. Daughter sent home to obtain the meds. Pt denies fox. blurred vision. No fox. HD cT (-), no fever , WBC NL AP : Hypertensive urgency, now with multiple seizures with no clear etiology await official MRI results and ensure no sinus thrombosis , less likely vasculitis given no ischemic lesions on scan no clear evidence of meningitis, though new onset encephalitis possible cont Keppra 1000 mg BID and if another seizure event load Phosphenytoin if no clear cause would LP, check glucose, protein, cell count and HSV titers , [facility] state encephalitis panel and cytology check CT CHEST /ABD/pelvis and mammogram to ensure no underyling malignancy Dc flouxetine and/or any other RX which may precipitate seizures routine EEG Dr. Fuentes Problem List - Problems (1) Hypertensive emergency Code(s): I16.1 - HYPERTENSIVE EMERGENCY (2) Seizure Code(s): R56.9 - UNSPECIFIED CONVULSIONS
[2018-11-18] MEDS ORDERED: FOSPHENYTOIN SODIUM 1,000 MG in SODIUM CHLORIDE 100 ML IVPB ONE (13:32)
--- NOTE | 2018-11-18 20:37 | PN ---
Progress Note, Physician History of Present Illness: Events of today noted: Multiple episodes of seizures and pt transferred to ICU Pt lethargic - Current Medication List Current Medications: Active Medications Amlodipine Besylate (Norvasc -) 2.5 mg PO DAILY [facility] Last Admin: 11/18/18 12:02 Dose: Not Given Anastrozole (Arimidex -) 1 mg PO DAILY [facility] Last Admin: 11/18/18 12:02 Dose: Not Given Aspirin (Asa -) 81 mg PO DAILY [facility] Last Admin: 11/18/18 12:02 Dose: Not Given Chlorhexidine Gluconate (Hibiclens For Decolonization -) 1 applic TP HS [facility] Fosphenytoin Sodium (Cerebyx -) 100 mg IVPB TID [facility] Heparin Sodium (Porcine) (Heparin -) 5,000 unit SQ BID [facility] Last Admin: 11/18/18 10:50 Dose: 5,000 unit Hydrochlorothiazide (Hctz -) 25 mg PO DAILY [facility] Last Admin: 11/18/18 12:02 Dose: Not Given Insulin Aspart (Novolog Vial Sliding Scale -) 1 vial SQ Q6H [facility]; Protocol Last Admin: 11/18/18 19:42 Dose: Not Given Levetiracetam (Keppra Injection -) 1,000 mg IVPB BID [facility] Last Admin: 11/18/18 10:49 Dose: 1,000 mg Losartan Potassium (Cozaar -) 100 mg PO DAILY [facility] Last Admin: 11/18/18 12:02 Dose: Not Given Metoprolol Tartrate (Lopressor -) 25 mg PO DAILY [facility] Last Admin: 11/18/18 12:02 Dose: Not Given Mupirocin (Bactroban Ointment (For Decolonization) -) 1 applic NS BID [facility] Stop: 11/23/18 09:59 Last Admin: 11/18/18 10:51 Dose: 1 applic Rosuvastatin Calcium (Crestor -) 20 mg PO [facility] - Objective Vital Signs: Vital Signs Temperature 98.3 F 11/18/18 20:00 Pulse Rate 68 11/18/18 20:00 Respiratory Rate 16 11/18/18 20:00 Blood Pressure 136/65 11/18/18 20:00 O2 Sat by Pulse Oximetry (%) 99 11/18/18 19:40 Constitutional: Yes: Well Nourished Neck: Yes: WNL, Supple Cardiovascular: Yes: WNL, Regular Rate and Rhythm Respiratory: Yes: WNL, Regular, CTA Bilaterally Gastrointestinal: Yes: WNL, Normal Bowel Sounds, Soft Edema: No Neurological: Yes: WNL, Alert, Oriented ...Motor Strength: WNL Labs: CBC, BMP 11/18/18 05:40 11/18/18 05:40 INR, PTT INR 0.96 (0.83-1.09) 11/17/18 08:05 Problem List - Problems (1) Seizure Assessment/Plan: Repeat CT scan head was normal MRI brain unremarkable(no metastatic dz) Neuro consult noted Dose of keppra increased Phenytoin added Await EEG Neurochecks Code(s): R56.9 - UNSPECIFIED CONVULSIONS (2) HTN (hypertension) Assessment/Plan: BP is now stable Cont Hctz/asa/norvasc/cozaar/metoprolol Check echo Code(s): I10 - ESSENTIAL (PRIMARY) HYPERTENSION (3) HLD (hyperlipidemia) Assessment/Plan: Cont crestor Code(s): E78.5 - HYPERLIPIDEMIA, UNSPECIFIED (4) Diabetes Assessment/Plan: Cont sliding scale w/ coverage HgA1c is 7.3 Jardiance is nonformulary Will cont to monitor Code(s): E11.9 - TYPE 2 DIABETES MELLITUS WITHOUT COMPLICATIONS (5) Anxiety and depression Assessment/Plan: Cont paxil Code(s): F41.9 - ANXIETY DISORDER, UNSPECIFIED; F32.9 - MAJOR DEPRESSIVE DISORDER, SINGLE EPISODE, UNSPECIFIED (6) Breast cancer Assessment/Plan: Cont arimidex Code(s): C50.919 - MALIGNANT NEOPLASM OF UNSP SITE OF UNSPECIFIED FEMALE BREAST
[2018-11-18] MEDS ORDERED: PT OWN MED DRAWER 7, Y5N ONE (21:01)
[2018-11-18] MEDS: PARoxetine HCL 20 MG TABLET PO SCH (21:15)
[2018-11-18] MEDS: CHLORHEXIDINE GLUCONATE 4% CLEANSER FOR DECOLONIZATION TP SCH (21:17)
[2018-11-18] MEDS: ROSUVASTATIN CA 20 MG TABLET (FP) PO SCH (21:20)
[2018-11-18] MEDS ORDERED: FOSPHENYTOIN SODIUM 100 MG/2 ML VIAL IVPB SCH (22:00)
[2018-11-18] MEDS: FOSPHENYTOIN SODIUM 100 MG/2 ML VIAL IVPB SCH (22:29)
--- NOTE | 2018-11-18 23:38 | PN ---
Progress Note (short form) - Note Progress Note: Patient had two episodes of seizure-like activity overnight after returning to baseline. Unlike prior seizure activity, these episodes consistent with psychogenic non-epileptic seizures. Patient responded to verbal commands, protected face, and had steady rhythmic moaning of the word help. Given 0.5mg ativan for agitation after second episode. Neuro exam unchanged and intact.
[2018-11-19] MEDS: INSULIN SLIDING SCALE (NOVOLOG) 1 VIAL SQ SCH ×5 (05:29→22:22)
[2018-11-19] MEDS: FOSPHENYTOIN SODIUM 100 MG/2 ML VIAL IVPB SCH ×3 (05:30→21:44)
[2018-11-19 05:39] LABS: LYMPH % 36.5 % (8-40)
[2018-11-19 05:53] LABS: BASO % 0.8 % (0-2.0); EOS % 3.6 % (0-4.5); HEMATOCRIT 37.8 % (32.4-45.2); HEMOGLOBIN 12.3 GM/dL (10.7-15.3); MCH 27.7 pg (25.7-33.7); MCHC 32.7 g/dl (32.0-36.0); MEAN CELL VOLUME 84.6 fl (80-96); MEAN PLT VOLUME 8.1 fl (7.5-11.1); MONO % 8.5 % (3.8-10.2); NEUT % 50.6 % (42.8-82.8); PLATELET COUNT 214 K/MM3 (134-434); RBC 4.47 M/mm3 (3.60-5.2); RDW 14.8 % (11.6-15.6); WHITE BLOOD COUNT 4.6 K/mm3 (4.0-10.0)
[2018-11-19 06:05] LABS: ALBUMIN 3.5 g/dl (3.4-5.0); BILIRUBIN,TOTAL 0.4 mg/dL (0.2-1); BLOOD UREA NITROGEN 13.5 mg/dL (7-18); CALCIUM 8.9 mg/dL (8.5-10.1); CREATININE 0.8 mg/dL (0.55-1.3); MAGNESIUM 2.3 mg/dL (1.8-2.4); PHOSPHOROUS 3.4 mg/dL (2.5-4.9); POTASSIUM 3.6 mmol/L (3.5-5.1)
[2018-11-19] MEDS ORDERED: PT OWN MED DRAWER 7, Y5N ONE ×2 (10:06→21:01)
[2018-11-19] MEDS: amLODIPine BESYLATE 2.5 MG TABLET (FP) PO SCH (10:07)
[2018-11-19] MEDS: PARoxetine HCL 20 MG TABLET PO SCH (10:08)
[2018-11-19] MEDS: LOSARTAN POTASSIUM 50 MG TABLET (FP) PO SCH (10:08)
[2018-11-19] MEDS: ANASTROZOLE 1 MG TABLET PO SCH (10:08)
[2018-11-19] MEDS: ASPIRIN 81 MG CHEWABLE TABLETS PO SCH (10:08)
[2018-11-19] MEDS: METOPROLOL TARTRATE 25 MG TABLET (FP) PO SCH (10:08)
[2018-11-19] MEDS: HEPARIN NA (PORCINE) 5,000 UNITS/ML 1ML VIAL SQ SCH ×2 (10:09→21:17)
[2018-11-19] MEDS: HYDROCHLOROTHIAZIDE 25 MG TABLET (FP) PO SCH (10:09)
[2018-11-19] MEDS: levETIRAcetam 500 MG/5 ML INJECTION VIAL IVPB SCH ×2 (10:10→21:17)
--- NOTE | 2018-11-19 10:40 | PN ---
Teaching Attending Note Name of Resident: Jareth De Santiago ATTENDING PHYSICIAN STATEMENT I saw and evaluated the patient. I reviewed the resident's note and discussed the case with the resident. I agree with the resident's findings and plan as documented. SUBJECTIVE: Pt seen and examined in the ICU. MRI brain unremarkable. Questionable seizures overnight. Denies headache, nausea. OBJECTIVE: Vital Signs Period Temp Pulse Resp BP Sys/Salazar Pulse Ox Last 24 Hr 98 F-98.3 F 57-85 16-20 122-155/62-80 99-100 Intake & Output 11/16/18 11/17/18 11/18/18 11/19/18 23:59 23:59 23:59 23:59 Intake Total 370 300 100 Output Total 300 800 Balance 70 -500 100 Weight 88.451 kg 88.859 kg 89.103 kg Gen: NAD at rest Heart: RRR Lung: decreased breath sounds at the bases Abd: soft, nontender Ext: no edema CBC, BMP 11/19/18 05:05 11/19/18 05:05 Active Medications Amlodipine Besylate (Norvasc -) 2.5 mg PO DAILY [facility] Last Admin: 11/19/18 10:07 Dose: 2.5 mg Anastrozole (Arimidex -) 1 mg PO DAILY [facility] Last Admin: 11/19/18 10:08 Dose: 1 mg Aspirin (Asa -) 81 mg PO DAILY [facility] Last Admin: 11/19/18 10:08 Dose: 81 mg Chlorhexidine Gluconate (Hibiclens For Decolonization -) 1 applic TP HS [facility] Last Admin: 11/18/18 21:17 Dose: 1 applic Fosphenytoin Sodium (Cerebyx -) 100 mg IVPB TID [facility] Last Admin: 11/19/18 05:30 Dose: 100 mg Heparin Sodium (Porcine) (Heparin -) 5,000 unit SQ BID [facility] Last Admin: 11/19/18 10:09 Dose: 5,000 unit Hydrochlorothiazide (Hctz -) 25 mg PO DAILY [facility] Last Admin: 11/19/18 10:09 Dose: 25 mg Insulin Aspart (Novolog Vial Sliding Scale -) 1 vial SQ Q6H [facility]; Protocol Last Admin: 11/19/18 05:29 Dose: Not Given Levetiracetam (Keppra Injection -) 1,000 mg IVPB BID [facility] Last Admin: 11/19/18 10:10 Dose: 1,000 mg Losartan Potassium (Cozaar -) 100 mg PO DAILY [facility] Last Admin: 11/19/18 10:08 Dose: 100 mg Metoprolol Tartrate (Lopressor -) 25 mg PO DAILY [facility] Last Admin: 11/19/18 10:08 Dose: 25 mg Mupirocin (Bactroban Ointment (For Decolonization) -) 1 applic NS BID [facility] Stop: 11/23/18 09:59 Last Admin: 11/18/18 21:20 Dose: 1 applic Paroxetine HCl (Paxil -) 20 mg PO DAILY [facility] Last Admin: 11/19/18 10:08 Dose: 20 mg Rosuvastatin Calcium (Crestor -) 20 mg PO HS [facility] Last Admin: 11/18/18 21:20 Dose: Not Given ASSESSMENT AND PLAN: New Onset Seizures Breast Ca s/p R Mastectomy/LN dissection CAD HTN DM Hyperlipidemia Anxiety/Depression - antiepileptics - benzos as needed - seizure precautions - aspiration precautions - DVT prophylaxis - can monitor on telemetry
--- NOTE | 2018-11-19 11:11 | PN ---
Physical Exam: SUBJECTIVE: Patient seen and examined at bedside this AM. Pt had 2 episodes of Sz like activity, psychogenic non-epileptic, where 0.5mg Ativan was given. OBJECTIVE: Vital Signs Period Temp Pulse Resp BP Sys/Salazar Pulse Ox Last 24 Hr 98 F-98.3 F 57-85 16-20 122-155/62-80 99-100 GENERAL: The patient is awake, alert, and fully oriented, in no acute distress. HEAD: Normal with no signs of trauma. NECK: supple. LUNGS: Breath sounds equal, clear to auscultation bilaterally, no wheezes, no crackles, no accessory muscle use. HEART: Regular rate and rhythm, S1, S2 without murmur, rub or gallop. ABDOMEN: Soft, nontender, nondistended, no guarding, no rebound. EXTREMITIES: 2+pulses, warm, well-perfused, no edema. NEUROLOGICAL: Cranial nerves II through XII grossly intact. Normal speech, gait not observed. PSYCH: Normal mood, normal affect, not anxious at this time. SKIN: Warm, dry, no rashes or lesions noted Laboratory Results - last 24 hr 11/18/18 11/18/18 11/18/18 12:06 17:36 20:55 WBC RBC Hgb Hct MCV MCH MCHC RDW Plt Count MPV Absolute Neuts (auto) Neutrophils % Lymphocytes % Monocytes % Eosinophils % Basophils % Nucleated RBC % Sodium Potassium Chloride Carbon Dioxide Anion Gap BUN Creatinine Est GFR (CKD-EPI)AfAm Est GFR (CKD-EPI)NonAf POC Glucometer 111 96 98 Random Glucose Calcium Phosphorus Magnesium Total Bilirubin AST ALT Alkaline Phosphatase Total Protein Albumin Phenytoin 11/18/18 11/19/18 11/19/18 21:00 02:23 05:05 WBC 4.6 RBC 4.47 Hgb 12.3 Hct 37.8 MCV 84.6 MCH 27.7 MCHC 32.7 RDW 14.8 Plt Count 214 MPV 8.1 Absolute Neuts (auto) 2.3 Neutrophils % 50.6 D Lymphocytes % 36.5 Monocytes % 8.5 Eosinophils % 3.6 Basophils % 0.8 Nucleated RBC % 0 Sodium Potassium Chloride Carbon Dioxide Anion Gap BUN Creatinine Est GFR (CKD-EPI)AfAm Est GFR (CKD-EPI)NonAf POC Glucometer 112 Random Glucose Calcium Phosphorus Magnesium Total Bilirubin AST ALT Alkaline Phosphatase Total Protein Albumin Phenytoin 15.2 11/19/18 11/19/18 05:05 05:24 WBC RBC Hgb Hct MCV MCH MCHC RDW Plt Count MPV Absolute Neuts (auto) Neutrophils % Lymphocytes % Monocytes % Eosinophils % Basophils % Nucleated RBC % Sodium 142 Potassium 3.6 Chloride 108 H Carbon Dioxide 27 Anion Gap 7 L BUN 13.5 Creatinine 0.8 Est GFR (CKD-EPI)AfAm 86.57 Est GFR (CKD-EPI)NonAf 74.70 POC Glucometer 109 Random Glucose 111 H Calcium 8.9 Phosphorus 3.4 Magnesium 2.3 Total Bilirubin 0.4 AST 14 L ALT 24 Alkaline Phosphatase 78 Total Protein 7.0 Albumin 3.5 Phenytoin Active Medications Generic Name Dose Route Start Last Admin Trade Name Freq PRN Reason Stop Dose Admin Amlodipine Besylate 2.5 mg 11/18/18 10:00 11/19/18 10:07 Norvasc - PO 2.5 mg DAILY [facility]A Administration Anastrozole 1 mg 11/18/18 10:00 11/19/18 10:08 Arimidex - PO 1 mg DAILY [facility] Administration Aspirin 81 mg 11/18/18 10:00 11/19/18 10:08 Asa - PO 81 mg DAILY [facility] Administration Chlorhexidine Gluconate 1 applic 11/18/18 22:00 11/18/18 21:17 Hibiclens For Decolonization - TP 1 applic HS [facility] Administration Fosphenytoin Sodium 100 mg 11/18/18 14:19 11/19/18 05:30 Cerebyx - IVPB 100 mg TID [facility]A Administration Heparin Sodium (Porcine) 5,000 unit 11/18/18 10:00 11/19/18 10:09 Heparin - SQ 5,000 unit BID [facility] Administration Hydrochlorothiazide 25 mg 11/18/18 10:00 11/19/18 10:09 Hctz - PO 25 mg DAILY [facility] Administration Insulin Aspart 1 vial 11/18/18 17:00 11/19/18 05:29 Novolog Vial Sliding Scale - SQ Not Given Q6H [facility] Protocol Levetiracetam 1,000 mg 11/18/18 10:00 11/19/18 10:10 Keppra Injection - IVPB 1,000 mg BID [facility] Administration Losartan Potassium 100 mg 11/18/18 10:00 11/19/18 10:08 Cozaar - PO 100 mg DAILY [facility] Administration Metoprolol Tartrate 25 mg 11/18/18 10:00 11/19/18 10:08 Lopressor - PO 25 mg DAILY [facility] Administration Mupirocin 1 applic 11/18/18 10:00 11/18/18 21:20 Bactroban Ointment (For Decolonization) - NS 11/23/18 09:59 1 applic BID [facility] Administration Paroxetine HCl 20 mg 11/18/18 21:00 11/19/18 10:08 Paxil - PO 20 mg DAILY [facility] Administration Rosuvastatin Calcium 20 mg 11/18/18 22:00 11/18/18 21:20 Crestor - PO Not Given HS [facility] ASSESSMENT/PLAN: Brain MRI: Impression: Ischemic changes in the white matter of both hemispheres sequela most probably to long-standing hypertension or small vessel arteriosclerosis.. No evidence acute infarction. No evidence of intracerebral hemorrhage, subdural fluid collection or hydrocephalus. No suspicious enhancing intra or extra axial neoplasm. No suspicious meningeal enhancement. ASSESSMENT/PLAN: 68 y/o F PMH significant for breast cancer(s/p rt mastectomy/lymph node resection. s/p radiation and arimidex), HTN, HLD, CAD(s/p stent placement), diabetes, anxiety, depression, who initially presented for new onset seizures which began at home yesterday. On admission pt had systolic BP> 190. Pt transferred to ICU post rapid response for recurrent seizure stabilization. NEUROLOGY->New onset seizures/HTN urgency vs possible PRES -BP currently controlled : ~130/90 - head CT: no acute hemorrhage. no acute interval change -c/w keppra 1000mg IVPB BID. -fosphenytoin 100 TID -Neuro recs appreciated( Dr. Fuentes) as with continued seizure activity - no signs of infection, no need for LP at this time, afebrile, no wbc, negative BC'S, UCx. - brain MRI reviewed, see above results. no suspicious enhancing intra or extra axial neoplasm -seizure precautions, can advance diet per bus girl HEMATOLOGY/ONCOLOGY-> BRCA breast ca (s/p R mastectomy/ LN resection, radiation) -c/w arimidex CARDIOLOGY-> HTN/HLD -holding hctz, asa, norvasc, cozaar, metoprolol, crestor as pt is npo 2/2 lethargy. pt BP currently well controlled. -BP currently stable. can start IV control if needed as unable to tolerate PO ENDOCRINE->TYPE II DM -c/w ISS, BGM ACHS -A1C 7.3 PSYCHOLOGY->Anxiety, depression -hold paxil in the setting of seizure activity - Versed PRN for agitation F/E/N -continue to follow lytes -NPO; lethargy DVT PPX: hep sq Dispo: Pt is being transferred to tele. Thank you for this consultative opportunity. Visit type - Emergency Visit Emergency Visit: Yes ED Registration Date: 11/17/18 Care time: The patient presented to the Emergency Department on the above date and was hospitalized for further evaluation of their emergent condition. - New Patient This patient is new to me today: Yes Date on this admission: 11/19/18 - Critical Care Critical Care patient: Yes Total Critical Care Time (in minutes): 35 Critical Care Statement: The care of this patient involved high complexity decision making to prevent further life threatening deterioration of the patient 's condition and/or to evaluate & treat vital organ system(s) failure or risk of failure. ATTENDING PHYSICIAN STATEMENT I saw and evaluated the patient. I reviewed the resident's note and discussed the case with the resident. I agree with the resident's findings and plan as documented. SUBJECTIVE: OBJECTIVE: ASSESSMENT AND PLAN:
[2018-11-19] MEDS: MUPIROCIN 2% TOPICAL OINTMENT FOR DECOLONIZATION NS SCH ×2 (13:56→21:18)
--- NOTE | 2018-11-19 17:04 | PN ---
Progress Note (short form) - Note Progress Note: 68yo female with hx of htn on 3 bp meds, follows with dr. valiente and hx of breast ca in the past with new onset seizures today. Pt arrives via ambulance with a seizure that lasted about 10 seconds upon arrival. 4th seizure occurred in the ambulance - both resolved spontaneously without meds. Per medics - BP was >200 systolic upon their arrival. Pt with glucose 190 in the field. Per daughter, pt arrived on the bus to her house around 7:15 and then had her first seizure around 7:30. Concern pt never returned to baseline. pt denies alcohol use, states she took her bp meds this am and an extra "agitation" med that starts with an F. Daughter sent home to obtain the meds. NO HX of seizures. Pt denies fox. blurred vision. No FOX. Keppra loaded in ER. HD cT (-), no fever , WBC NL FU : much more awake , at baseline ? episode last night , though no clear GTC events as per son, stress factors at home Incontra inc 1000BID and loaded on dilantin yesterday CT HD contrast to my eye (-) MRI BRAIN no evidence stroke, mass, infection; - Alcohol/Substance Use Hx Alcohol Use: No - Smoking History Smoking history: Never smoked Have you smoked in the past 12 months: No If you are a former smoker, when did you quit?: 02/16/15 Home Medications - Allergies Allergies/Adverse Reactions: Allergies Allergy/AdvReac Type Severity Reaction Status Date / Time No Known Drug Allergies Allergy Verified 11/17/18 07:49 - Home Medications Home Medications: Ambulatory Orders Alprazolam [Xanax] 0.5 mg PO Q6H PRN 04/15/14 Amlodipine Besylate [Norvasc -] 2.5 mg PO DAILY 04/15/14 Aspirin [ASA -] 81 mg PO DAILY 04/15/14 Losartan/Hydrochlorothiazide [Losartan-Hctz 100-25 mg Tab] 1 each PO DAILY 04/15 Anastrozole [Arimidex -] 1 mg PO DAILY 11/17/18 Empagliflozin [Jardiance] 10 mg PO DAILY 11/17/18 Metoprolol Tartrate 25 mg PO DAILY 11/17/18 Rosuvastatin Calcium 20 mg PO DAILY 11/17/18 Physical Exam-Neuro Vital Signs: Vital Signs Temperature 99.2 F 11/19/18 16:00 Pulse Rate 64 11/19/18 16:00 Respiratory Rate 16 11/19/18 16:00 Blood Pressure 125/72 11/19/18 16:00 O2 Sat by Pulse Oximetry (%) 99 11/18/18 19:40 Labs: CBCD WBC 4.6 K/mm3 (4.0-10.0) 11/19/18 05:05 RBC 4.47 M/mm3 (3.60-5.2) 11/19/18 05:05 Hgb 12.3 GM/dL (10.7-15.3) 11/19/18 05:05 Hct 37.8 % (32.4-45.2) 11/19/18 05:05 MCV 84.6 fl (80-96) 11/19/18 05:05 MCHC 32.7 g/dl (32.0-36.0) 11/19/18 05:05 RDW 14.8 % (11.6-15.6) 11/19/18 05:05 Plt Count 214 K/MM3 (134-434) 11/19/18 05:05 MPV 8.1 fl (7.5-11.1) 11/19/18 05:05 CMP Sodium 142 mmol/L (136-145) 11/19/18 05:05 Potassium 3.6 mmol/L (3.5-5.1) 11/19/18 05:05 Chloride 108 mmol/L (98-107) H 11/19/18 05:05 Carbon Dioxide 27 mmol/L (21-32) 11/19/18 05:05 Anion Gap 7 MMOL/L (8-16) L 11/19/18 05:05 BUN 13.5 mg/dL (7-18) 11/19/18 05:05 Creatinine 0.8 mg/dL (0.55-1.3) 11/19/18 05:05 Calcium 8.9 mg/dL (8.5-10.1) 11/19/18 05:05 Total Bilirubin 0.4 mg/dL (0.2-1) 11/19/18 05:05 AST 14 U/L (15-37) L 11/19/18 05:05 ALT 24 U/L (13-61) 11/19/18 05:05 Alkaline Phosphatase 78 U/L (45-117) 11/19/18 05:05 Total Protein 7.0 g/dl (6.4-8.2) 11/19/18 05:05 Albumin 3.5 g/dl (3.4-5.0) 11/19/18 05:05 - Neuro Exam Level Of Consciousness: Yes: Alert, Oriented to Person (EOMi, no facial, motor 5 /5, reflexes symmetric) Imaging - Results Cat Scan: Report Reviewed, Image Reviewed Problem List - Problems (1) Hypertensive emergency Code(s): I16.1 - HYPERTENSIVE EMERGENCY (2) Seizure Code(s): R56.9 - UNSPECIFIED CONVULSIONS Assessment/Plan 68yo female with hx of htn on 3 bp meds, follows with dr. valiente and hx of breast ca in the past with new onset seizures today. Pt arrives via ambulance with a seizure that lasted about 10 seconds upon arrival. 4th seizure occurred in the ambulance - both resolved spontaneously without meds. Per medics - BP was >200 systolic upon their arrival. Pt with glucose 190 in the field. Per daughter, pt arrived on the bus to her house around 7:15 and then had her first seizure around 7:30. Concern pt never returned to baseline. pt denies alcohol use, states she took her bp meds this am and an extra "agitation" med that starts with an F. Daughter sent home to obtain the meds. Pt denies fox. blurred vision. No fox. HD cT (-), no fever , WBC NL AP : Hypertensive urgency, now with multiple seizures with no clear etiology; back to baseline MRI results (-) , no sinus thrombosis , less likely vasculitis given no ischemic lesions on scan no clear evidence of meningitis, encephalitis adrianne as she appaers well now cont Keppra 1000 mg BID and cont dilantin 100TID check CT CHEST /ABD/pelvis and mammogram to ensure no underyling malignancy Dc flouxetine and/or any other RX which may precipitate seizures routine EEG --P stable for floor and would plan on getting 3 day EEG as an OUTPT DR MIKE Problem List - Problems (1) Hypertensive emergency Code(s): I16.1 - HYPERTENSIVE EMERGENCY (2) Seizure Code(s): R56.9 - UNSPECIFIED CONVULSIONS
[2018-11-19] MEDS: ROSUVASTATIN CA 20 MG TABLET (FP) PO SCH (21:17)
[2018-11-19] MEDS: CHLORHEXIDINE GLUCONATE 4% CLEANSER FOR DECOLONIZATION TP SCH (21:18)
--- NOTE | 2018-11-19 22:00 | PN ---
Progress Note, Physician History of Present Illness: No new complaints - Current Medication List Current Medications: Active Medications Amlodipine Besylate (Norvasc -) 2.5 mg PO DAILY [facility] Last Admin: 11/19/18 10:07 Dose: 2.5 mg Anastrozole (Arimidex -) 1 mg PO DAILY [facility] Last Admin: 11/19/18 10:08 Dose: 1 mg Aspirin (Asa -) 81 mg PO DAILY [facility] Last Admin: 11/19/18 10:08 Dose: 81 mg Chlorhexidine Gluconate (Hibiclens For Decolonization -) 1 applic TP HS [facility] Last Admin: 11/19/18 21:18 Dose: 1 applic Fosphenytoin Sodium (Cerebyx -) 100 mg IVPB TID [facility] Last Admin: 11/19/18 21:44 Dose: 100 mg Heparin Sodium (Porcine) (Heparin -) 5,000 unit SQ BID [facility] Last Admin: 11/19/18 21:17 Dose: 5,000 unit Hydrochlorothiazide (Hctz -) 25 mg PO DAILY [facility] Last Admin: 11/19/18 10:09 Dose: 25 mg Insulin Aspart (Novolog Vial Sliding Scale -) 1 vial SQ Q6H [facility]; Protocol Last Admin: 11/19/18 17:00 Dose: Not Given Levetiracetam (Keppra Injection -) 1,000 mg IVPB BID [facility] Last Admin: 11/19/18 21:17 Dose: 1,000 mg Losartan Potassium (Cozaar -) 100 mg PO DAILY [facility] Last Admin: 11/19/18 10:08 Dose: 100 mg Metoprolol Tartrate (Lopressor -) 25 mg PO DAILY [facility] Last Admin: 11/19/18 10:08 Dose: 25 mg Mupirocin (Bactroban Ointment (For Decolonization) -) 1 applic NS BID [facility] Stop: 11/23/18 09:59 Last Admin: 11/19/18 21:18 Dose: 1 applic Paroxetine HCl (Paxil -) 20 mg PO DAILY [facility] Last Admin: 11/19/18 10:08 Dose: 20 mg Rosuvastatin Calcium (Crestor -) 20 mg PO HS [facility] Last Admin: 11/19/18 21:17 Dose: 20 mg - Objective Vital Signs: Vital Signs Temperature 98.8 F 11/19/18 20:00 Pulse Rate 71 11/19/18 20:00 Respiratory Rate 17 11/19/18 20:00 Blood Pressure 142/65 11/19/18 20:00 O2 Sat by Pulse Oximetry (%) 99 11/19/18 19:46 Constitutional: Yes: Well Nourished Neck: Yes: WNL, Supple Cardiovascular: Yes: WNL, Regular Rate and Rhythm Respiratory: Yes: WNL, Regular, CTA Bilaterally Gastrointestinal: Yes: WNL, Normal Bowel Sounds, Soft Edema: No Neurological: Yes: WNL, Alert, Oriented ...Motor Strength: WNL Labs: CBC, BMP 11/19/18 05:05 11/19/18 05:05 INR, PTT INR 0.96 (0.83-1.09) 11/17/18 08:05 Problem List - Problems (1) Seizure Assessment/Plan: Repeat CT scan head was normal MRI brain unremarkable(no metastatic dz) Neuro consult noted Cont keppra/phenytoin Await EEG Neurochecks Code(s): R56.9 - UNSPECIFIED CONVULSIONS (2) HTN (hypertension) Assessment/Plan: BP is now stable Cont Hctz/asa/norvasc/cozaar/metoprolol Check echo Code(s): I10 - ESSENTIAL (PRIMARY) HYPERTENSION (3) HLD (hyperlipidemia) Assessment/Plan: Cont crestor Code(s): E78.5 - HYPERLIPIDEMIA, UNSPECIFIED (4) Diabetes Assessment/Plan: Cont sliding scale w/ coverage HgA1c is 7.3 Jardiance is nonformulary Will cont to monitor Code(s): E11.9 - TYPE 2 DIABETES MELLITUS WITHOUT COMPLICATIONS (5) Anxiety and depression Assessment/Plan: Cont paxil Code(s): F41.9 - ANXIETY DISORDER, UNSPECIFIED; F32.9 - MAJOR DEPRESSIVE DISORDER, SINGLE EPISODE, UNSPECIFIED (6) Breast cancer Assessment/Plan: Cont arimidex Code(s): C50.919 - MALIGNANT NEOPLASM OF UNSP SITE OF UNSPECIFIED FEMALE BREAST
[2018-11-20] MEDS ORDERED: INSULIN (NOVOLOG) ASPART 100 UNITS/ML 10ML VIAL ONE ×2 (05:36→16:46)
[2018-11-20] MEDS: INSULIN SLIDING SCALE (NOVOLOG) 1 VIAL SQ SCH ×4 (05:42→21:21)
[2018-11-20] MEDS: FOSPHENYTOIN SODIUM 100 MG/2 ML VIAL IVPB SCH (05:43)
--- NOTE | 2018-11-20 07:40 | PN ---
Physical Exam: SUBJECTIVE: Patient seen and examined at bedside. pt states she feels weak but no other acute complaints. OBJECTIVE: Vital Signs Period Temp Pulse Resp BP Sys/Salazar Pulse Ox Last 24 Hr 98.1 F-99.2 F 56-82 15-22 98-154/61-91 99 GENERAL: The patient is awake, alert, and fully oriented, in no acute distress. HEAD: Normal with no signs of trauma. EYES: PERRL, extraocular movements intact, sclera anicteric, conjunctiva clear. No ptosis. LUNGS: decreased breath sounds at bases b/l, clear to auscultation bilaterally, no wheezes, no crackles, no accessory muscle use. HEART: Regular rate and rhythm, S1, S2 without murmur, rub or gallop. ABDOMEN: Soft, nontender, nondistended, normoactive bowel sounds, no guarding EXTREMITIES: 2+ pulses, warm, well-perfused, no edema. NEUROLOGICAL: Cranial nerves II through XII grossly intact. Normal speech, gait not observed. SKIN: Warm, dry, normal turgor, no rashes or lesions noted Current Medications Amlodipine Besylate (Norvasc -) 2.5 mg PO DAILY [facility] Last Admin: 11/19/18 10:07 Dose: 2.5 mg Anastrozole (Arimidex -) 1 mg PO DAILY [facility] Last Admin: 11/19/18 10:08 Dose: 1 mg Aspirin (Asa -) 81 mg PO DAILY [facility] Last Admin: 11/19/18 10:08 Dose: 81 mg Chlorhexidine Gluconate (Hibiclens For Decolonization -) 1 applic TP HS [facility] Last Admin: 11/19/18 21:18 Dose: 1 applic Fosphenytoin Sodium (Cerebyx -) 100 mg IVPB TID [facility] Last Admin: 11/20/18 05:43 Dose: 100 mg Heparin Sodium (Porcine) (Heparin -) 5,000 unit SQ BID [facility] Last Admin: 11/19/18 21:17 Dose: 5,000 unit Hydrochlorothiazide (Hctz -) 25 mg PO DAILY [facility] Last Admin: 11/19/18 10:09 Dose: 25 mg Insulin Aspart (Novolog Vial Sliding Scale -) 1 vial SQ Q6H [facility]; Protocol Last Admin: 11/20/18 05:42 Dose: Not Given Levetiracetam (Keppra Injection -) 1,000 mg IVPB BID [facility] Last Admin: 11/19/18 21:17 Dose: 1,000 mg Losartan Potassium (Cozaar -) 100 mg PO DAILY [facility] Last Admin: 11/19/18 10:08 Dose: 100 mg Metoprolol Tartrate (Lopressor -) 25 mg PO DAILY [facility] Last Admin: 11/19/18 10:08 Dose: 25 mg Mupirocin (Bactroban Ointment (For Decolonization) -) 1 applic NS BID [facility] Stop: 11/23/18 09:59 Last Admin: 11/19/18 21:18 Dose: 1 applic Paroxetine HCl (Paxil -) 20 mg PO DAILY [facility] Last Admin: 11/19/18 10:08 Dose: 20 mg Rosuvastatin Calcium (Crestor -) 20 mg PO HS [facility] Last Admin: 11/19/18 21:17 Dose: 20 mg Brain MRI: Impression: Ischemic changes in the white matter of both hemispheres sequela most probably to long-standing hypertension or small vessel arteriosclerosis.. No evidence acute infarction. No evidence of intracerebral hemorrhage, subdural fluid collection or hydrocephalus. No suspicious enhancing intra or extra axial neoplasm. No suspicious meningeal enhancement. ASSESSMENT/PLAN: 68 yo F PMH significant for breast cancer(s/p rt mastectomy/lymph node resection. s/p radiation and arimidex), HTN, HLD, CAD(s/p stent placement), diabetes, anxiety, depression, who initially presented for new onset seizures which began at home yesterday. On admission pt had systolic BP> 190. Pt transferred to ICU post rapid response for recurrent seizure stabilization. NEURO New onset seizures HTN urgency vs possible PRES -BP currently controlled : ~130/90 -head CT: no acute hemorrhage. no acute interval change -c/w keppra 1000mg IVPB BID. will check level -c/w fosphenytoin 100 TID -Neuro recs appreciated( Dr. Fuentes) as with continued seizure activity -may need LP -brain MRI reviewed, see above results. no suspicious enhancing intra or extra axial neoplasm -seizure precautions HEME/ONC breast ca (s/p R mastectomy/ LN resection, radiation) -c/w arimidex CARDIO HTN, HLD -holding hctz, asa, norvasc, cozaar, metoprolol, crestor as pt is npo 2/2 lethargy. pt BP currently well controlled. -BP currently stable. can start IV control if needed as unable to tolerate PO ENDOCRINE -c/w ISS, BGM ACHS -A1C 7.3 PSYCH Anxiety, depression -hold paxil in the setting of seizure activity F/E/N -continue to follow lytes -diabetic/ sodium diet -aspiration precautions DVT PPX: hep sq Dispo: pt can be transferred to tele Visit type - Emergency Visit Emergency Visit: No - New Patient This patient is new to me today: No - Critical Care Critical Care patient: Yes Total Critical Care Time (in minutes): 36 Critical Care Statement: The care of this patient involved high complexity decision making to prevent further life threatening deterioration of the patient 's condition and/or to evaluate & treat vital organ system(s) failure or risk of failure. - Discharge Referral Referred to [facility] Med [facility] No ATTENDING PHYSICIAN STATEMENT I saw and evaluated the patient. I reviewed the resident's note and discussed the case with the resident. I agree with the resident's findings and plan as documented. SUBJECTIVE: OBJECTIVE: ASSESSMENT AND PLAN:
[2018-11-20] MEDS ORDERED: PT OWN MED DRAWER 7, Y5N ONE ×2 (09:32→16:46)
[2018-11-20] MEDS: ANASTROZOLE 1 MG TABLET PO SCH (09:44)
[2018-11-20] MEDS: PARoxetine HCL 20 MG TABLET PO SCH (09:44)
[2018-11-20] MEDS: HYDROCHLOROTHIAZIDE 25 MG TABLET (FP) PO SCH (09:45)
[2018-11-20] MEDS ORDERED: ALPRAZolam 0.25 MG TABLET PO ONE (09:45)
[2018-11-20] MEDS: LOSARTAN POTASSIUM 50 MG TABLET (FP) PO SCH (09:46)
[2018-11-20] MEDS: METOPROLOL TARTRATE 25 MG TABLET (FP) PO SCH (09:46)
[2018-11-20] MEDS: ASPIRIN 81 MG CHEWABLE TABLETS PO SCH (09:47)
[2018-11-20] MEDS: amLODIPine BESYLATE 2.5 MG TABLET (FP) PO SCH (09:47)
[2018-11-20] MEDS: levETIRAcetam 500 MG/5 ML INJECTION VIAL IVPB SCH (09:48)
[2018-11-20] MEDS: HEPARIN NA (PORCINE) 5,000 UNITS/ML 1ML VIAL SQ SCH ×2 (09:48→21:14)
[2018-11-20] MEDS: MUPIROCIN 2% TOPICAL OINTMENT FOR DECOLONIZATION NS SCH ×2 (09:49→21:15)
--- NOTE | 2018-11-20 10:45 | PN ---
Progress Note (short form) - Note Progress Note: 68yo female with hx of htn on 3 bp meds, follows with dr. valiente and hx of breast ca in the past with new onset seizures today. Pt arrives via ambulance with a seizure that lasted about 10 seconds upon arrival. 4th seizure occurred in the ambulance - both resolved spontaneously without meds. Per medics - BP was >200 systolic upon their arrival. Pt with glucose 190 in the field. Per daughter, pt arrived on the bus to her house around 7:15 and then had her first seizure around 7:30. Concern pt never returned to baseline. pt denies alcohol use, states she took her bp meds this am and an extra "agitation" med that starts with an F. Daughter sent home to obtain the meds. NO HX of seizures. Pt denies fox. blurred vision. No FOX. Keppra loaded in ER. HD cT (-), no fever , WBC NL FU : awake smiling , at baseline keppra inc 1000BID and loaded on dilantin yesterday CT HD contrast to my eye (-) MRI BRAIN no evidence stroke, mass, infection; - Alcohol/Substance Use Hx Alcohol Use: No - Smoking History Smoking history: Never smoked Have you smoked in the past 12 months: No If you are a former smoker, when did you quit?: 02/16/15 Home Medications - Allergies Allergies/Adverse Reactions: Allergies Allergy/AdvReac Type Severity Reaction Status Date / Time No Known Drug Allergies Allergy Verified 11/17/18 07:49 - Home Medications Home Medications: Ambulatory Orders Alprazolam [Xanax] 0.5 mg PO Q6H PRN 04/15/14 Amlodipine Besylate [Norvasc -] 2.5 mg PO DAILY 04/15/14 Aspirin [ASA -] 81 mg PO DAILY 04/15/14 Losartan/Hydrochlorothiazide [Losartan-Hctz 100-25 mg Tab] 1 each PO DAILY 04/15 Anastrozole [Arimidex -] 1 mg PO DAILY 11/17/18 Empagliflozin [Jardiance] 10 mg PO DAILY 11/17/18 Metoprolol Tartrate 25 mg PO DAILY 11/17/18 Rosuvastatin Calcium 20 mg PO DAILY 11/17/18 Physical Exam-Neuro Vital Signs: Vital Signs Temperature 98.6 F 11/20/18 04:00 Pulse Rate 67 11/20/18 06:00 Respiratory Rate 20 11/20/18 06:00 Blood Pressure 154/70 11/20/18 06:00 O2 Sat by Pulse Oximetry (%) 99 11/19/18 19:46 Labs: CBCD WBC 4.6 K/mm3 (4.0-10.0) 11/19/18 05:05 RBC 4.47 M/mm3 (3.60-5.2) 11/19/18 05:05 Hgb 12.3 GM/dL (10.7-15.3) 11/19/18 05:05 Hct 37.8 % (32.4-45.2) 11/19/18 05:05 MCV 84.6 fl (80-96) 11/19/18 05:05 MCHC 32.7 g/dl (32.0-36.0) 11/19/18 05:05 RDW 14.8 % (11.6-15.6) 11/19/18 05:05 Plt Count 214 K/MM3 (134-434) 11/19/18 05:05 MPV 8.1 fl (7.5-11.1) 11/19/18 05:05 CMP Sodium 142 mmol/L (136-145) 11/19/18 05:05 Potassium 3.6 mmol/L (3.5-5.1) 11/19/18 05:05 Chloride 108 mmol/L (98-107) H 11/19/18 05:05 Carbon Dioxide 27 mmol/L (21-32) 11/19/18 05:05 Anion Gap 7 MMOL/L (8-16) L 11/19/18 05:05 BUN 13.5 mg/dL (7-18) 11/19/18 05:05 Creatinine 0.8 mg/dL (0.55-1.3) 11/19/18 05:05 Calcium 8.9 mg/dL (8.5-10.1) 11/19/18 05:05 Total Bilirubin 0.4 mg/dL (0.2-1) 11/19/18 05:05 AST 14 U/L (15-37) L 11/19/18 05:05 ALT 24 U/L (13-61) 11/19/18 05:05 Alkaline Phosphatase 78 U/L (45-117) 11/19/18 05:05 Total Protein 7.0 g/dl (6.4-8.2) 11/19/18 05:05 Albumin 3.5 g/dl (3.4-5.0) 11/19/18 05:05 - Neuro Exam Level Of Consciousness: Yes: Alert, Oriented to Person (EOMi, no facial, motor 5 /5, reflexes symmetric) Imaging - Results Cat Scan: Report Reviewed, Image Reviewed Problem List - Problems (1) Hypertensive emergency Code(s): I16.1 - HYPERTENSIVE EMERGENCY (2) Seizure Code(s): R56.9 - UNSPECIFIED CONVULSIONS Assessment/Plan 68yo female with hx of htn on 3 bp meds, follows with dr. valiente and hx of breast ca in the past with new onset seizures today. Pt arrives via ambulance with a seizure that lasted about 10 seconds upon arrival. 4th seizure occurred in the ambulance - both resolved spontaneously without meds. Per medics - BP was >200 systolic upon their arrival. Pt with glucose 190 in the field. Per daughter, pt arrived on the bus to her house around 7:15 and then had her first seizure around 7:30. Concern pt never returned to baseline. pt denies alcohol use, states she took her bp meds this am and an extra "agitation" med that starts with an F. Daughter sent home to obtain the meds. Pt denies fox. blurred vision. No fox. HD cT (-), no fever , WBC NL AP : Hypertensive urgency, now with multiple seizures with no clear etiology; back to baseline MRI results (-) , no sinus thrombosis , less likely vasculitis given no ischemic lesions on scan no clear evidence of meningitis, encephalitis (no fever, WBC , and at baseline ) she appears well now ; can hold off on LP now cont Keppra 1000 mg BID and cont dilantin 100TID Dc flouxetine and/or any other RX which may precipitate seizures routine EEG --NL stable for DC to get 3 day EEG as an OUTPT DR MIKE Problem List - Problems (1) Hypertensive emergency Code(s): I16.1 - HYPERTENSIVE EMERGENCY (2) Seizure Code(s): R56.9 - UNSPECIFIED CONVULSIONS
--- NOTE | 2018-11-20 10:59 | PN ---
Teaching Attending Note Name of Resident: Connie Garsia ATTENDING PHYSICIAN STATEMENT I saw and evaluated the patient. I reviewed the resident's note and discussed the case with the resident. I agree with the resident's findings and plan as documented. SUBJECTIVE: Pt seen and examined in the ICU. Emotional/tearful this AM after talking to daughter. No further seizures noted. OBJECTIVE: Vital Signs Period Temp Pulse Resp BP Sys/Salazar Pulse Ox Last 24 Hr 98.2 F-99.2 F 56-82 15-22 98-154/61-91 99 Intake & Output 11/17/18 11/18/18 11/19/18 11/20/18 23:59 23:59 23:59 23:59 Intake Total 370 300 490 600 Output Total 300 800 Balance 70 -500 490 600 Weight 88.451 kg 88.859 kg 89.103 kg Gen: NAD at rest Heart: RRR Lung: decreased breath sounds at the bases Abd: soft, nontender Ext: no edema CBC, BMP 11/19/18 05:05 11/19/18 05:05 Active Medications Amlodipine Besylate (Norvasc -) 2.5 mg PO DAILY [facility] Last Admin: 11/20/18 09:47 Dose: 2.5 mg Anastrozole (Arimidex -) 1 mg PO DAILY [facility] Last Admin: 11/20/18 09:44 Dose: 1 mg Aspirin (Asa -) 81 mg PO DAILY [facility] Last Admin: 11/20/18 09:47 Dose: 81 mg Chlorhexidine Gluconate (Hibiclens For Decolonization -) 1 applic TP HS [facility] Last Admin: 11/19/18 21:18 Dose: 1 applic Fosphenytoin Sodium (Cerebyx -) 100 mg IVPB TID [facility] Last Admin: 11/20/18 05:43 Dose: 100 mg Heparin Sodium (Porcine) (Heparin -) 5,000 unit SQ BID [facility] Last Admin: 11/20/18 09:48 Dose: 5,000 unit Hydrochlorothiazide (Hctz -) 25 mg PO DAILY [facility] Last Admin: 11/20/18 09:45 Dose: 25 mg Insulin Aspart (Novolog Vial Sliding Scale -) 1 vial SQ Q6H [facility]; Protocol Last Admin: 11/20/18 05:42 Dose: Not Given Levetiracetam (Keppra Injection -) 1,000 mg IVPB BID [facility] Last Admin: 11/20/18 09:48 Dose: 1,000 mg Losartan Potassium (Cozaar -) 100 mg PO DAILY [facility] Last Admin: 11/20/18 09:46 Dose: 100 mg Metoprolol Tartrate (Lopressor -) 25 mg PO DAILY [facility] Last Admin: 11/20/18 09:46 Dose: 25 mg Mupirocin (Bactroban Ointment (For Decolonization) -) 1 applic NS BID [facility] Stop: 11/23/18 09:59 Last Admin: 11/20/18 09:49 Dose: 1 applic Paroxetine HCl (Paxil -) 20 mg PO DAILY [facility] Last Admin: 11/20/18 09:44 Dose: 20 mg Rosuvastatin Calcium (Crestor -) 20 mg PO HS [facility] Last Admin: 11/19/18 21:17 Dose: 20 mg ASSESSMENT AND PLAN: New Onset Seizures Breast Ca s/p R Mastectomy/LN dissection CAD HTN DM Hyperlipidemia Anxiety/Depression - antiepileptics - anxiolytics as needed - seizure precautions - aspiration precautions - DVT prophylaxis - can monitor on floor
[2018-11-20] MEDS ORDERED: ALPRAZolam 0.25 MG TABLET PO PRN (12:48)
[2018-11-20 14:26] VITALS: BMI 32.5
[2018-11-20] MEDS: levETIRAcetam 500 MG TABLET (FP) PO SCH ×2 (14:54→21:14)
[2018-11-20] MEDS: PHENYTOIN 50 MG TAB.CHEW PO SCH ×2 (15:03→22:01)
[2018-11-20] MEDS ORDERED: LORazepam 2 MG/ML SDV VIAL IVPUSH ONE (15:47)
--- NOTE | 2018-11-20 21:20 | PN ---
Progress Note, Physician History of Present Illness: Pt very tearful and anxious this am - Current Medication List Current Medications: Active Medications Alprazolam (Xanax -) 0.25 mg PO Q12H PRN PRN Reason: ANXIETY Amlodipine Besylate (Norvasc -) 2.5 mg PO DAILY [facility] Anastrozole (Arimidex -) 1 mg PO DAILY [facility] Aspirin (Asa -) 81 mg PO DAILY [facility] Chlorhexidine Gluconate (Hibiclens For Decolonization -) 1 applic TP HS [facility] Heparin Sodium (Porcine) (Heparin -) 5,000 unit SQ BID [facility] Hydrochlorothiazide (Hctz -) 25 mg PO DAILY [facility] Insulin Aspart (Novolog Vial Sliding Scale -) 1 vial SQ ACHS [facility]; Protocol Last Admin: 11/20/18 16:56 Dose: Not Given Levetiracetam (Keppra -) 1,000 mg PO BID [facility] Last Admin: 11/20/18 14:54 Dose: Not Given Losartan Potassium (Cozaar -) 100 mg PO DAILY [facility] Metoprolol Tartrate (Lopressor -) 25 mg PO DAILY [facility] Mupirocin (Bactroban Ointment (For Decolonization) -) 1 applic NS BID [facility] Stop: 11/23/18 09:59 Paroxetine HCl (Paxil -) 20 mg PO DAILY [facility] Phenytoin Sodium (Dilantin Chewable Tablet -) 100 mg PO TID [facility] Last Admin: 11/20/18 15:03 Dose: 100 mg Rosuvastatin Calcium (Crestor -) 20 mg PO [facility] - Objective Vital Signs: Vital Signs Temperature 98 F 11/20/18 15:48 Pulse Rate 66 11/20/18 15:48 Respiratory Rate 20 11/20/18 16:25 Blood Pressure 140/64 11/20/18 15:48 O2 Sat by Pulse Oximetry (%) 98 11/20/18 16:25 Constitutional: Yes: Well Nourished Neck: Yes: WNL, Supple Cardiovascular: Yes: WNL, Regular Rate and Rhythm Respiratory: Yes: WNL, Regular, CTA Bilaterally Gastrointestinal: Yes: WNL, Normal Bowel Sounds, Soft, Abdomen, Obese Edema: No Neurological: Yes: WNL, Alert, Oriented ...Motor Strength: WNL Labs: CBC, BMP 11/19/18 05:05 11/19/18 05:05 INR, PTT INR 0.96 (0.83-1.09) 11/17/18 08:05 Problem List - Problems (1) Seizure Assessment/Plan: Repeat CT scan head was normal MRI brain unremarkable(no metastatic dz) Neuro consult noted Cont keppra/phenytoin Await results EEG DC planning for am Neurochecks Code(s): R56.9 - UNSPECIFIED CONVULSIONS (2) HTN (hypertension) Assessment/Plan: BP is now stable Cont Hctz/asa/norvasc/cozaar/metoprolol Check echo Code(s): I10 - ESSENTIAL (PRIMARY) HYPERTENSION (3) HLD (hyperlipidemia) Assessment/Plan: Cont crestor Code(s): E78.5 - HYPERLIPIDEMIA, UNSPECIFIED (4) Diabetes Assessment/Plan: Cont sliding scale w/ coverage HgA1c is 7.3 Jardiance is nonformulary Will cont to monitor Code(s): E11.9 - TYPE 2 DIABETES MELLITUS WITHOUT COMPLICATIONS (5) Anxiety and depression Assessment/Plan: Cont paxil Pt w/ ?anxiety attack and lorazepam added Code(s): F41.9 - ANXIETY DISORDER, UNSPECIFIED; F32.9 - MAJOR DEPRESSIVE DISORDER, SINGLE EPISODE, UNSPECIFIED (6) Breast cancer Assessment/Plan: Cont arimidex Code(s): C50.919 - MALIGNANT NEOPLASM OF UNSP SITE OF UNSPECIFIED FEMALE BREAST
[2018-11-20] MEDS ORDERED: CHLORHEXIDINE GLUCONATE 4% CLEANSER FOR DECOLONIZATION TP SCH (22:00)
[2018-11-20] MEDS ORDERED: ROSUVASTATIN CA 20 MG TABLET (FP) PO SCH (22:00)
[2018-11-21] MEDS ORDERED: PT OWN MED DRAWER 7, Y5N ONE ×2 (06:05→09:51)
[2018-11-21] MEDS: INSULIN SLIDING SCALE (NOVOLOG) 1 VIAL SQ SCH ×2 (06:20→12:36)
[2018-11-21] MEDS: PHENYTOIN 50 MG TAB.CHEW PO SCH ×2 (06:21→14:00)
[2018-11-21 08:30] LABS: ALBUMIN 3.6 g/dl (3.4-5.0); BILIRUBIN,TOTAL 0.1 mg/dL (0.2-1); BLOOD UREA NITROGEN 11.3 mg/dL (7-18); CALCIUM 9.5 mg/dL (8.5-10.1); CREATININE 0.8 mg/dL (0.55-1.3); MAGNESIUM 2.2 mg/dL (1.8-2.4); PHOSPHOROUS 3.2 mg/dL (2.5-4.9); POTASSIUM 4.8 mmol/L (3.5-5.1); TOT PROT 7.5 g/dl (6.4-8.2)
[2018-11-21] MEDS ORDERED: PARoxetine HCL 10 MG TABLET ONE (09:50)
[2018-11-21] MEDS: levETIRAcetam 500 MG TABLET (FP) PO SCH (09:56)
[2018-11-21] MEDS: HEPARIN NA (PORCINE) 5,000 UNITS/ML 1ML VIAL SQ SCH (09:58)
[2018-11-21] MEDS: MUPIROCIN 2% TOPICAL OINTMENT FOR DECOLONIZATION NS SCH (09:59)
[2018-11-21] MEDS ORDERED: METOPROLOL TARTRATE 25 MG TABLET (FP) PO SCH (10:00)
[2018-11-21] MEDS ORDERED: amLODIPine BESYLATE 2.5 MG TABLET (FP) PO SCH (10:00)
[2018-11-21] MEDS ORDERED: LOSARTAN POTASSIUM 50 MG TABLET (FP) PO SCH (10:00)
[2018-11-21] MEDS ORDERED: HYDROCHLOROTHIAZIDE 25 MG TABLET (FP) PO SCH (10:00)
[2018-11-21] MEDS ORDERED: ANASTROZOLE 1 MG TABLET PO SCH (10:00)
[2018-11-21] MEDS ORDERED: PARoxetine HCL 20 MG TABLET PO SCH (10:00)
[2018-11-21] MEDS ORDERED: ASPIRIN 81 MG CHEWABLE TABLETS PO SCH (10:00)
[2018-11-21 12:43] LABS: EOS % 2.8 % (0-4.5); HEMATOCRIT 40.7 % (32.4-45.2); HEMOGLOBIN 13.1 GM/dL (10.7-15.3); LYMPH % 40.4 % (8-40); MCH 27.7 pg (25.7-33.7); MCHC 32.3 g/dl (32.0-36.0); MEAN CELL VOLUME 85.8 fl (80-96); MEAN PLT VOLUME 8.9 fl (7.5-11.1); MONO % 9.9 % (3.8-10.2); NEUT % 45.9 % (42.8-82.8); PLATELET COUNT 213 K/MM3 (134-434); RBC 4.74 M/mm3 (3.60-5.2); RDW 15.1 % (11.6-15.6); WHITE BLOOD COUNT 5.9 K/mm3 (4.0-10.0)
[2018-11-21 12:44] LABS: PLATELET ESTIMATE ADEQUATE
[2018-11-21 14:04] VITALS: BP 132/74; TEMP 98.7
[2018-11-21 14:16] VITALS: PULSE 56
== END 2018-11-21 14:25 | disposition home or self-care (01) | DRG 71 ==
LOC: JER 07:42 → JERBED 08:17 → J4S 10:36 → JICU 11-18 07:55 → J7W 11-20 15:38
PROVIDERS: ADMIT Internal Medicine; ATTEND Internal Medicine
DX: I67.83 Posterior reversible encephalopathy syndrome (principal); I16.1 Hypertensive emergency; E78.00 Pure hypercholesterolemia, unspecified; G40.909 Epilepsy, unspecified, not intractable, without status epilepticus; I10 Essential (primary) hypertension; T43.221A Poisoning by selective serotonin reuptake inhibitors, accidental (unintentional), initial encounter; C50.911 Malignant neoplasm of unspecified site of right female breast; I44.0 Atrioventricular block, first degree; I25.10 Atherosclerotic heart disease of native coronary artery without angina pectoris; E11.9 Type 2 diabetes mellitus without complications; F41.8 Other specified anxiety disorders; Z85.3 Personal history of malignant neoplasm of breast; Z95.5 Presence of coronary angioplasty implant and graft
CPT/HCPCS: 36415; 70450-TC; 70470-TC; 70552-TC; 71045-TC-FY; 80053; 80185; 80307; 81003; 82550; 82962; 83036; 83735; 84100; 84443; 84484; 85025; 85610; 85730; 86850; 86900; 86901; 87040; 87086; 93005; 93010; 95816; 97116-GP; 97161-GP; 99284-25; A9579; J1644